=== PATIENT | male | born 1955 | race Caucasian/White ===

== ENCOUNTER 2017-04-28 11:32 | Emergency (ER) | payer MEDICARE, OTHER ==
[~2017-04-28] VITALS: Ht 172.7 cm; Wt 120.2 kg
[~2017-04-28 11:32] MED LIST: ACET325; ACET325 PO; ALLO100 PO; ALLO300; AZIT500 PO; Aspir 8181 MG PO; BIOTENE1000 ML MM; CALCA500CH; CALCA500CH PO; CHLGLU.12S; CHLORHEXIDINE; CLOB.05TC TP; CLOBETASOL; CLON.2 PO; CLON.3 PO; DIAZ10; DOC250 PO; DOCCAL240; Duoneb 2.5-0.5 M3 ML IH; FIBE4P; FIBE4P PO; FURO40; FURO40 PO; FURO80 PO; GABA400; GABA400 PO; GABA600 PO; GENASYME PO; GLIM2 PO; GLIM4 PO; HYDACE5; HYDACE5 PO; IBUPROFEN; Ibuprofen Ib200 MG PO; LISI5; LISI5 PO; LORA10 PO; LORA10ER PO; METF500 PO; MUPI2TO TOP; NORT10; NORT10 PO; NORT25 PO; NYSTOP; Nitrostat0.4 MG SL; OMEP20ER; OMEP20ER PO; OMEPRAZOLE MAGN20 MG PO; POTA10T PO; POTCHL20ER; PRAV20 PO; RANI150 PO; SIME80CH; SPIR25 PO; SULTRIDS PO; TAMS.4ER PO; TIZA4; TIZA4 PO; TIZANIDINE HCL PO
[2017-04-28 12:12] LABS: BASOPHILS ABSOLUTE AUTO 0.07 K/mm3 (0.00-0.23); BASOPHILS PERCENT AUTO 1 % (0-2); EOSINOPHILS ABSOLUTE AUTO 0.33 K/mm3 (0.00-0.68); EOSINOPHILS PERCENT AUTO 4 % (0-6); Hematocrit 42.5 % (37.0-53.0); IMMATURE GRAN ABSOLUTE AUTO 0.12 K/mm3 (0.00-0.10); IMMATURE GRAN PERCENT AUTO 1 % (0-1); LYMPHOCYTES ABSOLUTE AUTO 2.04 K/mm3 (0.84-5.20); LYMPHOCYTES PERCENT AUTO 22 % (21-46); MONOCYTES ABSOLUTE AUTO 0.75 K/mm3 (0.16-1.47); MONOCYTES PERCENT AUTO 8 % (4-13); Mean Corpuscular HGB 26.4 pg (26.0-34.0); Mean Corpuscular HGB Conc 30.6 g/dL (31.5-36.5); Mean Corpuscular Volume 86 fL (80-100); Mean Platelet Volume 10.4 fL (9.1-12.4); NEUTROPHILS PERCENT AUTO 64 % (41-73); Platelet Count 222 K/mm3 (150-400); RDW Standard Deviation 50.4 fL (35.1-46.3); Red Blood Cell Count 4.93 M/mm3 (4.30-5.90); White Blood Cell Count 9.31 K/mm3 (4.00-11.30)
[2017-04-28 12:24] LABS: International Normalized Ratio 1.09; Prothrombin Time Results 11.4 Sec (9.7-11.5)
[2017-04-28 12:31] LABS: Alanine Aminotransfer (ALT/SGP 48 U/L (12-78); Albumin, Blood 3.6 g/dL (3.4-5.0); Albumin/Globulin Ratio 0.9 (0.8-1.8); Alk Phos 64 U/L (50-136); Anion Gap 5 mmol/L (6-16); Aspartate Aminotrans (AST/SGOT 28 U/L (12-37); Bilirubin, Total 0.3 mg/dL (0.1-1.0); Blood Urea Nitrogen 17 mg/dL (8-24); Bun/Creatinine Ratio 17.8 (12.0-20.0); CO2, Blood 34 mmol/L (21-32); Calcium, Blood 9.2 mg/dL (8.5-10.1); Chloride, Blood 99 mmol/L (98-108); Creatinine, Blood 0.96 mg/dL (0.60-1.20); Globulin, Blood 4.1 g/dL (2.2-4.0); Glomerular Filtration Rate >60 (60-); Glucose, Blood 172 mg/dL (70-99); Potassium, Blood 3.7 mmol/L (3.5-5.5); Sodium, Blood 138 mmol/L (136-145); Total Protein, Blood 7.7 g/dL (6.4-8.2); Troponin I <0.015 ng/mL (0.000-0.040)
[2017-04-28 12:46] LABS: Base Excess Venous 9.2 mmol/L; Bicarbonate Venous 30.5 mmol/L (24.0-30.0); PO2 Venous 35.1 mmHg (38-42); pH Blood Venous 7.38 (7.34-7.37)
[2017-10-18] MEDS ORDERED: LEVFLO500 PO (13:51)
[2018-01-09] MEDS ORDERED: SITA100T2 PO (16:12)
[2018-01-09] MEDS ORDERED: DAIRY RELIE9000 UNIT (16:13)
[2018-01-09] MEDS ORDERED: Monodox100 MG PO (16:33)
== END 2017-04-28 14:13 | disposition home or self-care (01) ==
LOC: ER 11:32
PROVIDERS: Emergency Medicine
DX: J40 Bronchitis, not specified as acute or chronic (principal); R06.4 Hyperventilation; R53.1 Weakness; Z86.73 Personal history of transient ischemic attack (TIA), and cerebral infarction without residual deficits; Z88.0 Allergy status to penicillin; Z88.8 Allergy status to other drugs, medicaments and biological substances; Z79.899 Other long term (current) drug therapy; Z79.82 Long term (current) use of aspirin; Z79.84 Long term (current) use of oral hypoglycemic drugs
CPT/HCPCS: 36415; 71046; 80053; 82803; 83880; 84443; 84484; 85025; 85610; 93005; 93010; 99284

== ENCOUNTER → 2017-07-06 | Outpatient (CLI) | payer MEDICARE, OTHER ==
[~2017-07-06] MED LIST changes: -NORT25 PO
[2017-07-07 13:03] LABS: Source, Urine Clean Catch
[2017-07-07 13:51] LABS: Appearance, Urine Clear (Clear); Bilirubin, Urine Neg (Neg); Blood, Urine Neg (Neg); Color, Urine Yellow (P-Yellow); Glucose Qualitative, Urine 4+ (Neg); Ketones, Urine 1+ (Neg); Leukocyte Esterase, Urine Neg (Neg); Nitrite, Urine Neg (Neg); Protein, Urine Neg (Neg); Urobilinogen, Urine NORM (Normal)
== END ==
LOC: LAB SHORT 07:00 → LAB 07:00
PROVIDERS: Nurse Practitioner Family
DX: N39.0 Urinary tract infection, site not specified (principal)
CPT/HCPCS: 81003

== ENCOUNTER 2017-07-13 10:40 | Day surgery (SDC) | payer MEDICARE, OTHER ==
[~2017-07-13] VITALS: Ht 170.2 cm; Wt 108.9 kg
== END 2017-07-13 12:40 | disposition home or self-care (01) ==
LOC: ORSCSDS 10:40
PROVIDERS: Internal Medicine Gastroenterology
PROC: 0DB68ZX Excision of Stomach, Via Natural or Artificial Opening Endoscopic, Diagnostic (ICD-10-PCS; principal; 2017-07-13 12:00)
DX: R10.13 Epigastric pain (principal); K29.70 Gastritis, unspecified, without bleeding; R10.9 Unspecified abdominal pain; I10 Essential (primary) hypertension; G47.33 Obstructive sleep apnea (adult) (pediatric); J45.909 Unspecified asthma, uncomplicated; K21.9 Gastro-esophageal reflux disease without esophagitis; Z86.73 Personal history of transient ischemic attack (TIA), and cerebral infarction without residual deficits; E11.9 Type 2 diabetes mellitus without complications; E66.9 Obesity, unspecified; Z68.38 Body mass index [BMI] 38.0-38.9, adult; I50.9 Heart failure, unspecified; G47.30 Sleep apnea, unspecified; Z79.84 Long term (current) use of oral hypoglycemic drugs; Z79.82 Long term (current) use of aspirin; Z79.899 Other long term (current) drug therapy
CPT/HCPCS: 82947; 88305; 88342; J7120

== ENCOUNTER 2017-08-28 11:11 | Emergency (ER) | payer MEDICARE, OTHER ==
[~2017-08-28] VITALS: Ht 170.2 cm; Wt 113.4 kg
[2017-08-28 12:03] LABS: BASOPHILS ABSOLUTE AUTO 0.07 K/mm3 (0.00-0.23); BASOPHILS PERCENT AUTO 1 % (0-2); EOSINOPHILS PERCENT AUTO 2 % (0-6); Hematocrit 40.3 % (37.0-53.0); Hemoglobin 12.5 g/dL (13.5-17.5); IMMATURE GRAN PERCENT AUTO 1 % (0-1); LYMPHOCYTES ABSOLUTE AUTO 1.16 K/mm3 (0.84-5.20); LYMPHOCYTES PERCENT AUTO 8 % (21-46); MONOCYTES ABSOLUTE AUTO 1.25 K/mm3 (0.16-1.47); MONOCYTES PERCENT AUTO 9 % (4-13); Mean Corpuscular HGB 26.4 pg (26.0-34.0); Mean Corpuscular Volume 85 fL (80-100); Mean Platelet Volume 10.1 fL (9.1-12.4); NEUTROPHILS ABSOLUTE AUTO 11.42 K/mm3 (1.96-9.15); NEUTROPHILS PERCENT AUTO 80 % (41-73); Platelet Count 206 K/mm3 (150-400); RDW Coefficient Variation 15.9 % (11.7-14.2); RDW Standard Deviation 49.3 fL (35.1-46.3); Red Blood Cell Count 4.74 M/mm3 (4.30-5.90)
[2017-08-28 12:20] LABS: Alanine Aminotransfer (ALT/SGP 31 U/L (12-78); Albumin, Blood 3.3 g/dL (3.4-5.0); Albumin/Globulin Ratio 0.8 (0.8-1.8); Alk Phos 67 U/L (50-136); Anion Gap 6 mmol/L (6-16); Aspartate Aminotrans (AST/SGOT 15 U/L (12-37); Bilirubin, Total 0.4 mg/dL (0.1-1.0); Blood Urea Nitrogen 10 mg/dL (8-24); Bun/Creatinine Ratio 11.7 (12.0-20.0); CO2, Blood 33 mmol/L (21-32); Chloride, Blood 99 mmol/L (98-108); Creatinine, Blood 0.86 mg/dL (0.60-1.20); Globulin, Blood 4.1 g/dL (2.2-4.0); Glomerular Filtration Rate >60 (60-); Glucose, Blood 248 mg/dL (70-99); Potassium, Blood 3.9 mmol/L (3.5-5.5); Sodium, Blood 138 mmol/L (136-145); Total Protein, Blood 7.4 g/dL (6.4-8.2)
[2017-08-28] MEDS ORDERED: Dulcolax5 MG PO (12:38)
== END 2017-08-28 13:42 | disposition home or self-care (01) ==
LOC: ER 11:11
PROVIDERS: Physician Assistant
DX: K59.00 Constipation, unspecified (principal); Z88.8 Allergy status to other drugs, medicaments and biological substances; Z88.1 Allergy status to other antibiotic agents; Z88.0 Allergy status to penicillin; Z79.82 Long term (current) use of aspirin; Z79.84 Long term (current) use of oral hypoglycemic drugs; Z79.899 Other long term (current) drug therapy
CPT/HCPCS: 74176; 80053; 81000; 83690; 85025; 96360; 99284; J7030

== ENCOUNTER 2017-08-30 15:00 | Inpatient (IN) | payer MEDICARE, OTHER ==
[~2017-08-30] VITALS: Ht 167.6 cm; Wt 100.6 kg
[~2017-08-30 15:00] MED LIST changes: +Dulcolax5 MG PO; +NORT25 PO
[2017-08-30 16:49] LABS: BASOPHILS ABSOLUTE AUTO 0.08 K/mm3 (0.00-0.23); BASOPHILS PERCENT AUTO 1 % (0-2); EOSINOPHILS ABSOLUTE AUTO 0.12 K/mm3 (0.00-0.68); EOSINOPHILS PERCENT AUTO 1 % (0-6); Hematocrit 37.8 % (37.0-53.0); Hemoglobin 11.7 g/dL (13.5-17.5); IMMATURE GRAN PERCENT AUTO 1 % (0-1); LYMPHOCYTES ABSOLUTE AUTO 1.23 K/mm3 (0.84-5.20); LYMPHOCYTES PERCENT AUTO 8 % (21-46); MONOCYTES ABSOLUTE AUTO 1.73 K/mm3 (0.16-1.47); MONOCYTES PERCENT AUTO 11 % (4-13); Mean Corpuscular HGB 26.8 pg (26.0-34.0); Mean Corpuscular Volume 87 fL (80-100); Mean Platelet Volume 10.4 fL (9.1-12.4); NEUTROPHILS ABSOLUTE AUTO 12.75 K/mm3 (1.96-9.15); NEUTROPHILS PERCENT AUTO 79 % (41-73); Platelet Count 204 K/mm3 (150-400); RDW Coefficient Variation 16.5 % (11.7-14.2); RDW Standard Deviation 52.5 fL (35.1-46.3); Red Blood Cell Count 4.37 M/mm3 (4.30-5.90); White Blood Cell Count 16.11 K/mm3 (4.00-11.30)
[2017-08-30 17:13] LABS: Alanine Aminotransfer (ALT/SGP 24 U/L (12-78); Albumin, Blood 2.9 g/dL (3.4-5.0); Albumin/Globulin Ratio 0.7 (0.8-1.8); Alk Phos 77 U/L (50-136); Anion Gap 9 mmol/L (6-16); Aspartate Aminotrans (AST/SGOT 19 U/L (12-37); Bilirubin, Total 0.4 mg/dL (0.1-1.0); Blood Urea Nitrogen 16 mg/dL (8-24); CO2, Blood 28 mmol/L (21-32); Calcium, Blood 9.9 mg/dL (8.5-10.1); Chloride, Blood 102 mmol/L (98-108); Creatinine, Blood 1.33 mg/dL (0.60-1.20); Globulin, Blood 4.4 g/dL (2.2-4.0); Glomerular Filtration Rate 58 (60-); Glucose, Blood 191 mg/dL (70-99); Magnesium, Blood 2.1 mg/dL (1.6-2.4); Potassium, Blood 4.2 mmol/L (3.5-5.5); Sodium, Blood 139 mmol/L (136-145); Total Protein, Blood 7.3 g/dL (6.4-8.2); Troponin I <0.015 ng/mL (0.000-0.040)
[2017-08-31 04:13] LABS: BASOPHILS ABSOLUTE AUTO 0.06 K/mm3 (0.00-0.23); BASOPHILS PERCENT AUTO 1 % (0-2); EOSINOPHILS ABSOLUTE AUTO 0.16 K/mm3 (0.00-0.68); EOSINOPHILS PERCENT AUTO 1 % (0-6); Hematocrit 35.1 % (37.0-53.0); Hemoglobin 10.8 g/dL (13.5-17.5); IMMATURE GRAN ABSOLUTE AUTO 0.12 K/mm3 (0.00-0.10); IMMATURE GRAN PERCENT AUTO 1 % (0-1); LYMPHOCYTES ABSOLUTE AUTO 0.87 K/mm3 (0.84-5.20); LYMPHOCYTES PERCENT AUTO 7 % (21-46); MONOCYTES ABSOLUTE AUTO 1.22 K/mm3 (0.16-1.47); MONOCYTES PERCENT AUTO 10 % (4-13); Mean Corpuscular HGB 26.3 pg (26.0-34.0); Mean Corpuscular HGB Conc 30.8 g/dL (31.5-36.5); Mean Corpuscular Volume 85 fL (80-100); Mean Platelet Volume 10.5 fL (9.1-12.4); NEUTROPHILS ABSOLUTE AUTO 9.69 K/mm3 (1.96-9.15); NEUTROPHILS PERCENT AUTO 80 % (41-73); Platelet Count 176 K/mm3 (150-400); RDW Coefficient Variation 16.5 % (11.7-14.2); RDW Standard Deviation 51.6 fL (35.1-46.3); Red Blood Cell Count 4.11 M/mm3 (4.30-5.90); White Blood Cell Count 12.12 K/mm3 (4.00-11.30)
[2017-08-31 04:33] LABS: Alanine Aminotransfer (ALT/SGP 22 U/L (12-78); Albumin, Blood 2.4 g/dL (3.4-5.0); Albumin/Globulin Ratio 0.6 (0.8-1.8); Alk Phos 67 U/L (50-136); Anion Gap 6 mmol/L (6-16); Aspartate Aminotrans (AST/SGOT 15 U/L (12-37); Bilirubin, Total 0.4 mg/dL (0.1-1.0); Blood Urea Nitrogen 11 mg/dL (8-24); Bun/Creatinine Ratio 12.3 (12.0-20.0); CO2, Blood 29 mmol/L (21-32); Calcium, Blood 8.8 mg/dL (8.5-10.1); Chloride, Blood 107 mmol/L (98-108); Creatinine, Blood 0.89 mg/dL (0.60-1.20); Globulin, Blood 4.2 g/dL (2.2-4.0); Glomerular Filtration Rate >60 (60-); Glucose, Blood 150 mg/dL (70-99); Potassium, Blood 3.9 mmol/L (3.5-5.5); Sodium, Blood 142 mmol/L (136-145); Total Protein, Blood 6.6 g/dL (6.4-8.2)
[2017-09-01 11:59] LABS: BASOPHILS ABSOLUTE AUTO 0.04 K/mm3 (0.00-0.23); BASOPHILS PERCENT AUTO 0 % (0-2); EOSINOPHILS ABSOLUTE AUTO 0.05 K/mm3 (0.00-0.68); EOSINOPHILS PERCENT AUTO 1 % (0-6); Hematocrit 36.8 % (37.0-53.0); Hemoglobin 11.4 g/dL (13.5-17.5); IMMATURE GRAN ABSOLUTE AUTO 0.17 K/mm3 (0.00-0.10); IMMATURE GRAN PERCENT AUTO 2 % (0-1); LYMPHOCYTES PERCENT AUTO 6 % (21-46); MONOCYTES ABSOLUTE AUTO 1.19 K/mm3 (0.16-1.47); MONOCYTES PERCENT AUTO 12 % (4-13); Mean Corpuscular Volume 84 fL (80-100); Mean Platelet Volume 10.1 fL (9.1-12.4); NEUTROPHILS PERCENT AUTO 79 % (41-73); Platelet Count 214 K/mm3 (150-400); RDW Standard Deviation 49.5 fL (35.1-46.3); Red Blood Cell Count 4.38 M/mm3 (4.30-5.90); White Blood Cell Count 9.85 K/mm3 (4.00-11.30)
[2017-09-01 12:30] LABS: Alanine Aminotransfer (ALT/SGP 28 U/L (12-78); Albumin, Blood 2.5 g/dL (3.4-5.0); Albumin/Globulin Ratio 0.5 (0.8-1.8); Alk Phos 77 U/L (50-136); Anion Gap 8 mmol/L (6-16); Aspartate Aminotrans (AST/SGOT 30 U/L (12-37); Bilirubin, Total 0.4 mg/dL (0.1-1.0); Blood Urea Nitrogen 14 mg/dL (8-24); Bun/Creatinine Ratio 18.3 (12.0-20.0); CO2, Blood 24 mmol/L (21-32); Calcium, Blood 8.9 mg/dL (8.5-10.1); Chloride, Blood 111 mmol/L (98-108); Creatinine, Blood 0.77 mg/dL (0.60-1.20); Globulin, Blood 4.6 g/dL (2.2-4.0); Glomerular Filtration Rate >60 (60-); Glucose, Blood 211 mg/dL (70-99); Potassium, Blood 4.1 mmol/L (3.5-5.5); Sodium, Blood 143 mmol/L (136-145); Total Protein, Blood 7.1 g/dL (6.4-8.2); Troponin I <0.015 ng/mL (0.000-0.040)
[2017-09-03 05:12] LABS: BASOPHILS ABSOLUTE AUTO 0.08 K/mm3 (0.00-0.23); BASOPHILS PERCENT AUTO 1 % (0-2); EOSINOPHILS ABSOLUTE AUTO 0.19 K/mm3 (0.00-0.68); EOSINOPHILS PERCENT AUTO 2 % (0-6); Hematocrit 39.2 % (37.0-53.0); Hemoglobin 11.9 g/dL (13.5-17.5); Mean Corpuscular HGB 25.5 pg (26.0-34.0); Mean Corpuscular HGB Conc 30.4 g/dL (31.5-36.5); Mean Corpuscular Volume 84 fL (80-100); Platelet Count 279 K/mm3 (150-400); RDW Coefficient Variation 16.2 % (11.7-14.2); RDW Standard Deviation 49.5 fL (35.1-46.3); Red Blood Cell Count 4.67 M/mm3 (4.30-5.90)
[2017-09-03 05:14] LABS: IMMATURE GRAN ABSOLUTE AUTO 0.56 K/mm3 (0.00-0.10); IMMATURE GRAN PERCENT AUTO 5 % (0-1); LYMPHOCYTES ABSOLUTE AUTO 2.32 K/mm3 (0.84-5.20); LYMPHOCYTES PERCENT AUTO 19 % (21-46); MONOCYTES ABSOLUTE AUTO 1.26 K/mm3 (0.16-1.47); MONOCYTES PERCENT AUTO 11 % (4-13); NEUTROPHILS ABSOLUTE AUTO 7.59 K/mm3 (1.96-9.15); NEUTROPHILS PERCENT AUTO 63 % (41-73)
[2017-09-03 05:36] LABS: Albumin, Blood 2.6 g/dL (3.4-5.0); Anion Gap 8 mmol/L (6-16); Blood Urea Nitrogen 25 mg/dL (8-24); Bun/Creatinine Ratio 25.9 (12.0-20.0); CO2, Blood 30 mmol/L (21-32); Calcium, Blood 9.1 mg/dL (8.5-10.1); Chloride, Blood 107 mmol/L (98-108); Creatinine, Blood 0.97 mg/dL (0.60-1.20); Glomerular Filtration Rate >60 (60-); Glucose, Blood 179 mg/dL (70-99); Phosphorus, Blood 3.4 mg/dL (2.5-4.9); Potassium, Blood 3.6 mmol/L (3.5-5.5); Sodium, Blood 145 mmol/L (136-145)
[2017-09-05 05:25] LABS: BASOPHILS ABSOLUTE AUTO 0.06 K/mm3 (0.00-0.23); BASOPHILS PERCENT AUTO 1 % (0-2); EOSINOPHILS ABSOLUTE AUTO 0.35 K/mm3 (0.00-0.68); EOSINOPHILS PERCENT AUTO 3 % (0-6); Hemoglobin 12.7 g/dL (13.5-17.5); IMMATURE GRAN PERCENT AUTO 7 % (0-1); LYMPHOCYTES ABSOLUTE AUTO 2.31 K/mm3 (0.84-5.20); LYMPHOCYTES PERCENT AUTO 17 % (21-46); MONOCYTES ABSOLUTE AUTO 1.06 K/mm3 (0.16-1.47); MONOCYTES PERCENT AUTO 8 % (4-13); Mean Corpuscular HGB 26.3 pg (26.0-34.0); Mean Corpuscular HGB Conc 31.8 g/dL (31.5-36.5); Mean Corpuscular Volume 83 fL (80-100); Mean Platelet Volume 9.6 fL (9.1-12.4); NEUTROPHILS PERCENT AUTO 65 % (41-73); Platelet Count 277 K/mm3 (150-400); RDW Coefficient Variation 15.9 % (11.7-14.2); RDW Standard Deviation 47.7 fL (35.1-46.3); Red Blood Cell Count 4.82 M/mm3 (4.30-5.90); White Blood Cell Count 13.28 K/mm3 (4.00-11.30)
[2017-09-05 05:44] LABS: BAND PERCENT MAN 1 % (0-8); BASOPHILS PERCENT MAN 0 % (0-2); EOSINOPHILS ABSOLUTE MAN 0.53 K/mm3 (0.00-0.68); EOSINOPHILS PERCENT MAN 4 % (0-6); LYMPHOCYTES % ATYPICAL MANUAL 1 % (0-0); LYMPHOCYTES ABSOLUTE MAN 1.06 K/mm3 (0.84-5.20); LYMPHOCYTES PERCENT MAN 7 % (21-46); METAMYELOCYTE ABSOLUTE MAN 0.39 K/mm3 (0.00-0.00); METAMYELOCYTE PERCENT MAN 3 % (0-0); MONOCYTES ABSOLUTE MAN 0.79 K/mm3 (0.16-1.47); MONOCYTES PERCENT MAN 6 % (4-13); NEUTROPHILS ABSOLUTE MAN 10.49 K/mm3 (1.96-9.15); SEG NEUTROPHILS PERCENT MAN 78 % (41-73); TOTAL CELLS COUNTED 100
[2017-09-05 05:57] LABS: Anion Gap 9 mmol/L (6-16); Blood Urea Nitrogen 20 mg/dL (8-24); Bun/Creatinine Ratio 22.1 (12.0-20.0); CO2, Blood 26 mmol/L (21-32); Calcium, Blood 9.4 mg/dL (8.5-10.1); Chloride, Blood 108 mmol/L (98-108); Creatinine, Blood 0.91 mg/dL (0.60-1.20); Glomerular Filtration Rate >60 (60-); Glucose, Blood 198 mg/dL (70-99); Potassium, Blood 3.8 mmol/L (3.5-5.5); Sodium, Blood 143 mmol/L (136-145)
[2017-09-05] MEDS ORDERED: XARELTO20 MG PO (17:20)
[2017-09-05] MEDS ORDERED: DOXY100 PO (17:20)
== END 2017-09-05 19:10 | disposition home or self-care (01) | DRG 871 ==
LOC: ER 15:00 → PCU 17:29 → MEDS 17:29 → PCU 18:27 → MEDS 08-31 14:44 → PCU 09-01 13:25 → MEDS 09-02 17:22 → ENPENDDIS 09-05 11:30 → MEDS 09-05 19:10
PROVIDERS: Emergency Medicine; Family Medicine; Internal Medicine; Student in an Organized Health Care Education/Training Program
DX: A41.50 Gram-negative sepsis, unspecified (principal); R65.21 Severe sepsis with septic shock; N39.0 Urinary tract infection, site not specified; I69.351 Hemiplegia and hemiparesis following cerebral infarction affecting right dominant side; N17.9 Acute kidney failure, unspecified; N41.0 Acute prostatitis; R44.3 Hallucinations, unspecified; E78.5 Hyperlipidemia, unspecified; E11.9 Type 2 diabetes mellitus without complications; I10 Essential (primary) hypertension; G47.33 Obstructive sleep apnea (adult) (pediatric); Z79.82 Long term (current) use of aspirin; E86.9 Volume depletion, unspecified; I95.9 Hypotension, unspecified; B96.1 Klebsiella pneumoniae [K. pneumoniae] as the cause of diseases classified elsewhere; N40.1 Benign prostatic hyperplasia with lower urinary tract symptoms; R33.9 Retention of urine, unspecified; L50.0 Allergic urticaria; T37.8X5A Adverse effect of other specified systemic anti-infectives and antiparasitics, initial encounter; Y92.239 Unspecified place in hospital as the place of occurrence of the external cause; N39.490 Overflow incontinence; I69.320 Aphasia following cerebral infarction; Z79.84 Long term (current) use of oral hypoglycemic drugs; Z86.711 Personal history of pulmonary embolism; Z87.01 Personal history of pneumonia (recurrent)
CPT/HCPCS: 36415; 51702; 71045; 80048; 80053; 80069; 81001; 82947; 83605; 83735; 83880; 84484; 85025; 87040; 87077; 87086; 87186; 93005; 93010; 94640; 94660; 94762; 96365; 97161; 97530; 99285; G8978; G8979; J1200; J1650; J1815; J1940; J1956; J2060; J2930; J7030

== ENCOUNTER → 2017-09-26 | Outpatient (CLI) | payer MEDICARE, OTHER ==
[~2017-09-26] MED LIST changes: +DOXY100 PO; +XARELTO20 MG PO
[2017-09-26 17:42] LABS: Source, Urine Clean Catch
[2017-09-26 17:50] LABS: Bilirubin, Urine Neg (Neg); Blood, Urine 1+ (Neg); Glucose Qualitative, Urine Neg (Neg); Ketones, Urine Neg (Neg); Leukocyte Esterase, Urine 2+ (Neg); Nitrite, Urine Neg (Neg); Protein, Urine Neg (Neg); Specific Gravity, Urine 1.015 (1.003-1.022); Urobilinogen, Urine NORM (Normal)
[2017-09-26 18:14] LABS: Appearance, Urine Clear (Clear); Color, Urine Pale Yellow (P-Yellow)
[2017-09-26 18:15] LABS: Bacteria Not Seen /hpf; Red Blood Cells, Urine 0-2 /hpf (0-2); Squamous Epithelial Cells Few /hpf (Few); White Blood Cells, Urine 0-2 /hpf (0-5)
== END ==
LOC: LAB 14:45 → LAB SHORT 14:45
PROVIDERS: Nurse Practitioner Family
DX: N39.0 Urinary tract infection, site not specified (principal); R35.0 Frequency of micturition
CPT/HCPCS: 81001

== ENCOUNTER → 2017-10-13 | Outpatient (CLI) | payer MEDICARE, OTHER ==
[~2017-10-13] MED LIST changes: +LEVFLO500 PO
== END ==
LOC: LAB 16:34 → LAB SHORT 16:34
DX: N39.0 Urinary tract infection, site not specified (principal); R30.0 Dysuria
CPT/HCPCS: 87077; 87086; 87186

== ENCOUNTER → 2017-12-05 | Outpatient (CLI) | payer MEDICARE, OTHER ==
[2017-12-05 13:50] LABS: Source, Urine Clean Catch
[2017-12-05 14:24] LABS: Bilirubin, Urine Neg (Neg); Blood, Urine Neg (Neg); Glucose Qualitative, Urine Neg (Neg); Ketones, Urine Neg (Neg); Leukocyte Esterase, Urine 1+ (Neg); Nitrite, Urine Neg (Neg); Protein, Urine 1+ (Neg); Specific Gravity, Urine 1.015 (1.003-1.022); Urobilinogen, Urine NORM (Normal)
[2017-12-05 14:51] LABS: Appearance, Urine Clear (Clear); Color, Urine Yellow (P-Yellow)
[2017-12-05 14:57] LABS: Bacteria Few /hpf; Red Blood Cells, Urine Not Seen /hpf (0-2); Squamous Epithelial Cells Not Seen /hpf (Few); Transitional Epithelial Cells Rare /hpf (0-Rare)
== END ==
LOC: LAB SHORT 06:15 → LAB 06:15
PROVIDERS: Nurse Practitioner Family
DX: N39.0 Urinary tract infection, site not specified (principal)
CPT/HCPCS: 81001; 87077; 87086; 87186

== ENCOUNTER → 2017-12-21 | Outpatient (CLI) | payer MEDICARE, OTHER ==
[2017-12-21 18:06] LABS: Bilirubin, Urine Neg (Neg); Blood, Urine Neg (Neg); Color, Urine Yellow (P-Yellow); Glucose Qualitative, Urine Neg (Neg); Ketones, Urine Neg (Neg); Leukocyte Esterase, Urine Neg (Neg); Nitrite, Urine Neg (Neg); Protein, Urine Neg (Neg); Specific Gravity, Urine 1.015 (1.003-1.022); Urobilinogen, Urine NORM (Normal)
[2017-12-21 18:37] LABS: Appearance, Urine Clear (Clear)
== END ==
LOC: LAB SHORT 17:35
PROVIDERS: Nurse Practitioner Family
DX: N39.0 Urinary tract infection, site not specified (principal)
CPT/HCPCS: 81003

== ENCOUNTER → 2018-01-30 | Outpatient (CLI) | payer MEDICARE, OTHER ==
[~2018-01-30] MED LIST changes: +DAIRY RELIE9000 UNIT; +Monodox100 MG PO; +SITA100T2 PO
[2018-01-31 13:46] LABS: Bilirubin, Urine Neg (Neg); Blood, Urine Neg (Neg); Glucose Qualitative, Urine 1+ (Neg); Ketones, Urine Neg (Neg); Leukocyte Esterase, Urine Neg (Neg); Nitrite, Urine Neg (Neg); Protein, Urine Neg (Neg); Specific Gravity, Urine 1.015 (1.003-1.022); Urobilinogen, Urine NORM (Normal); pH, Urine 6.5 (5.0-8.0)
[2018-01-31 13:58] LABS: Color, Urine Yellow (P-Yellow)
[2018-01-31 13:59] LABS: Appearance, Urine Clear (Clear)
== END | disposition home or self-care (01) ==
LOC: LAB 18:30 → LAB SHORT 18:30
PROVIDERS: Nurse Practitioner Family
DX: N39.0 Urinary tract infection, site not specified (principal)
CPT/HCPCS: 81003

== ENCOUNTER → 2018-07-23 | Outpatient (CLI) | payer MEDICARE, OTHER ==
[2018-07-24 16:04] LABS: Adenovirus F 40/41 Not Detected (NOT DETECT); Astrovirus Not Detected (NOT DETECT); Campylobacter Sp Not Detected (NOT DETECT); Cryptosporidium Not Detected (NOT DETECT); Cyclospora Cayetanensis Not Detected (NOT DETECT); E. Coli O157 Not Detected (NOT DETECT); Entamoeba Histolytica Not Detected (NOT DETECT); Enteroaggregative E. coli-EAEC Not Detected (NOT DETECT); Enteropathogenic E. coli-EPEC Not Detected (NOT DETECT); Enterotoxigenic E. coli-ETEC Not Detected (NOT DETECT); Giardia Lamblia Not Detected (NOT DETECT); Norovirus GI/GII Not Detected (NOT DETECT); Plesiomonas Shigelloides Not Detected (NOT DETECT); Rotavirus A Not Detected (NOT DETECT); Salmonella Sp Not Detected (NOT DETECT); Sapovirus Not Detected (NOT DETECT); Shiga Toxin-prod E. coli-STEC Not Detected (NOT DETECT); Shigella/Enteroin E. coli-EIEC Not Detected (NOT DETECT); Vibrio Cholerae Not Detected (NOT DETECT); Vibrio Sp Not Detected (NOT DETECT); Yersinia Enterocolitica Not Detected (NOT DETECT)
== END | disposition home or self-care (01) ==
LOC: LAB 13:25 → LAB SHORT 13:25
PROVIDERS: Nurse Practitioner Family
DX: R19.7 Diarrhea, unspecified (principal)
CPT/HCPCS: 87507

== ENCOUNTER → 2020-01-14 | Outpatient (CLI) | payer MEDICARE, OTHER | LOC: LAB 17:34 → LAB SHORT 17:34 | DX: E11.9 Type 2 diabetes mellitus without complications (principal) | CPT/HCPCS: 82043 ==

== ENCOUNTER → 2020-04-10 | Outpatient (CLI) | payer MEDICARE, OTHER ==
[2020-04-10 12:56] LABS: BASOPHILS ABSOLUTE AUTO 0.08 K/mm3 (0.00-0.23); BASOPHILS PERCENT AUTO 1 % (0-2); EOSINOPHILS ABSOLUTE AUTO 0.39 K/mm3 (0.00-0.68); EOSINOPHILS PERCENT AUTO 5 % (0-6); IMMATURE GRAN ABSOLUTE AUTO 0.08 K/mm3 (0.00-0.10); IMMATURE GRAN PERCENT AUTO 1 % (0-1); LYMPHOCYTES ABSOLUTE AUTO 1.84 K/mm3 (0.84-5.20); LYMPHOCYTES PERCENT AUTO 21 % (21-46); MONOCYTES ABSOLUTE AUTO 0.67 K/mm3 (0.16-1.47); MONOCYTES PERCENT AUTO 8 % (4-13); Mean Corpuscular HGB 26.3 pg (26.0-34.0); Mean Corpuscular HGB Conc 30.8 g/dL (31.5-36.5); Mean Corpuscular Volume 85 fL (80-100); Mean Platelet Volume 11.7 fL (9.1-12.4); NEUTROPHILS ABSOLUTE AUTO 5.67 K/mm3 (1.96-9.15); NEUTROPHILS PERCENT AUTO 65 % (41-73); Platelet Count 184 K/mm3 (150-400); RDW Coefficient Variation 15.9 % (11.7-14.2); RDW Standard Deviation 49.2 fL (35.1-46.3); Red Blood Cell Count 4.57 M/mm3 (4.30-5.90); White Blood Cell Count 8.73 K/mm3 (4.00-11.30)
== END ==
LOC: LAB SHORT 08:30 → LAB 08:30
PROVIDERS: Nurse Practitioner Family
DX: I11.0 Hypertensive heart disease with heart failure (principal); I50.9 Heart failure, unspecified; E11.9 Type 2 diabetes mellitus without complications
CPT/HCPCS: 83036; 85025

== ENCOUNTER → 2020-06-02 | Outpatient (CLI) | payer MEDICARE, OTHER ==
[2020-06-02 15:32] LABS: Appearance, Urine Clear (Clear); Bilirubin, Urine Neg (Neg); Blood, Urine Neg (Neg); Color, Urine Yellow (P-Yellow); Glucose Qualitative, Urine Neg (Neg); Ketones, Urine Neg (Neg); Leukocyte Esterase, Urine Neg (Neg); Nitrite, Urine Neg (Neg); Protein, Urine Neg (Neg); Urobilinogen, Urine NORM (Normal)
== END | disposition home or self-care (01) ==
LOC: LAB 13:31 → LAB SHORT 13:31
PROVIDERS: Nurse Practitioner Family
DX: N39.0 Urinary tract infection, site not specified (principal)
CPT/HCPCS: 81003

== ENCOUNTER 2020-11-16 08:42 | Inpatient (IN) | payer MEDICARE, OTHER ==
[~2020-11-16] VITALS: Ht 188 cm; Wt 95.2 kg
[~2020-11-16 08:42] MED LIST changes: +Acetaminophen325 M1 PO; +GABA300 PO; -GABA600 PO; +IBUP200 PO; -Ibuprofen Ib200 MG PO
[2020-11-16 09:12] LABS: BASOPHILS ABSOLUTE AUTO 0.02 K/mm3 (0.00-0.23); BASOPHILS PERCENT AUTO 0 % (0-2); EOSINOPHILS ABSOLUTE AUTO 0.01 K/mm3 (0.00-0.68); EOSINOPHILS PERCENT AUTO 0 % (0-6); Hematocrit 38.9 % (37.0-53.0); Hemoglobin 12.4 g/dL (13.5-17.5); IMMATURE GRAN ABSOLUTE AUTO 0.04 K/mm3 (0.00-0.10); IMMATURE GRAN PERCENT AUTO 1 % (0-1); LYMPHOCYTES ABSOLUTE AUTO 0.83 K/mm3 (0.84-5.20); LYMPHOCYTES PERCENT AUTO 12 % (21-46); MONOCYTES ABSOLUTE AUTO 0.64 K/mm3 (0.16-1.47); MONOCYTES PERCENT AUTO 9 % (4-13); Mean Corpuscular HGB 25.9 pg (26.0-34.0); Mean Corpuscular HGB Conc 31.9 g/dL (31.5-36.5); Mean Corpuscular Volume 81 fL (80-100); Mean Platelet Volume 9.6 fL (9.1-12.4); NEUTROPHILS ABSOLUTE AUTO 5.66 K/mm3 (1.96-9.15); NEUTROPHILS PERCENT AUTO 79 % (41-73); Platelet Count 175 K/mm3 (150-400); RDW Coefficient Variation 17.1 % (11.7-14.2); RDW Standard Deviation 50.3 fL (35.1-46.3); Red Blood Cell Count 4.79 M/mm3 (4.30-5.90)
[2020-11-16 09:27] LABS: Bun/Creatinine Ratio 12.8 (12.0-20.0); Calcium, Blood 9.1 mg/dL (8.5-10.1); Creatinine, Blood 2.26 mg/dL (0.60-1.20)
[2020-11-16 10:00] LABS: Ferritin, Serum 217 ng/mL (26-388); Lactate Dehydrogenase (Ld),Bld 207 U/L (100-240)
[2020-11-16] MEDS ORDERED: BETASEPT118 M1 PO (10:39)
[2020-11-16] MEDS ORDERED: INSULANI SC (10:40)
[2020-11-16] MEDS ORDERED: NOVOLOG FL100 UNIT/3 SC (10:41)
[2020-11-16] MEDS ORDERED: MIRALAX17 GM PO (10:43)
[2020-11-16] MEDS ORDERED: OZEMPIC1 MG/0.72 SC (10:43)
[2020-11-16] MEDS ORDERED: SULTRIDS PO (10:45)
[2020-11-16] MEDS ORDERED: BETA.05TCA TOP (10:46)
[2020-11-16] MEDS ORDERED: MYLANTA MAXIMUM10 ML (10:47)
[2020-11-16] MEDS ORDERED: BISA5EC PO (10:48)
[2020-11-16] MEDS ORDERED: IPRAT-ALBUT 0.5-3 ML NEB (10:49)
[2020-11-16] MEDS ORDERED: LOPE2C PO (10:50)
[2020-11-16] MEDS ORDERED: NYSTRIT TOP (10:51)
[2020-11-16] MEDS ORDERED: CLOBET30L (10:51)
[2020-11-16] MEDS ORDERED: SILVADENE20 G1 (10:52)
[2020-11-16 11:41] LABS: Albumin, Blood 3.2 g/dL (3.4-5.0); Albumin/Globulin Ratio 0.9 (0.8-1.8); Bilirubin, Total 0.3 mg/dL (0.1-1.0); Bun/Creatinine Ratio 13.7 (12.0-20.0); Calcium, Blood 8.2 mg/dL (8.5-10.1); Creatinine, Blood 2.12 mg/dL (0.60-1.20); Globulin, Blood 3.6 g/dL (2.2-4.0); Total Protein, Blood 6.8 g/dL (6.4-8.2)
[2020-11-16 13:07] LABS: Source, Urine Catheter
[2020-11-16 13:15] LABS: Appearance, Urine Clear (Clear); Blood, Urine Neg (Neg); Color, Urine Yellow (P-Yellow); Glucose Qualitative, Urine Neg (Neg); Ketones, Urine Neg (Neg); Leukocyte Esterase, Urine Neg (Neg); Nitrite, Urine Neg (Neg); Protein, Urine 2+ (Neg); Urobilinogen, Urine NORM (Normal)
[2020-11-16 13:23] LABS: Bilirubin, Urine 1+ (Neg)
[2020-11-16 13:26] LABS: Red Blood Cells, Urine 0-2 /hpf (0-2)
[2020-11-16 13:27] LABS: Bacteria Mod /hpf; Squamous Epithelial Cells Mod /hpf (Few)
--- NOTE | 2020-11-16 15:57 | NUR ---
PER RUN 1/2 L D5WNS IN BOLUS FOR B.P. IN 80'S.
--- NOTE | 2020-11-16 18:14 | NUR ---
LIVES AT [facility]. ALERT TO SELF. HX; UTI'S, PROSTATITIS, D.M., HTN, STROKE W/RT IKE, P.E., MANAGER PHILOSOPHY SHUNT AND BRAIN ANEURYSM. CAME IN BECAUSE FACILITIES SAID HEART RATE WAS 200'S AND B.P. WAS SYSTOLIC 70'S. B.P. WAS 80'S ON ADMIT AND PER TO GET 500 ML BOLUS OF D5WNS WHICH DID BRING B.P. UP TO 90'S. IV INFUSING AT 125 ML /HR. TEL ON AND PER [employer] SR.HAS BRACE ON RT LEG. RT FINGERS/ HAND WITH CONTRACTURES. SHEETS DRAINING CLEAR YELLOW URINE TO GRAVITY. SATS ON 2 LPM HIGH 90'S. RECEIVED FIRST DOSE REMDESIVIR AND LEVOQUIN IV. SET UP DINNER TRAY FOR PATIENT. [facility]
--- NOTE | 2020-11-16 18:25 | NUR ---
PATIENTS MOM, LIBAN, UPDATED. SHE STS HE HAD ANEURYSM 1998 AND HAS SHORT TERM MEMORY LOSS AND APHASIA. NORMALLY WHEELCHAIR BOUND.
[2020-11-17 04:18] LABS: BASOPHILS ABSOLUTE AUTO 0.01 K/mm3 (0.00-0.23); BASOPHILS PERCENT AUTO 0 % (0-2); EOSINOPHILS PERCENT AUTO 0 % (0-6); Hematocrit 34.7 % (37.0-53.0); Hemoglobin 10.8 g/dL (13.5-17.5); IMMATURE GRAN ABSOLUTE AUTO 0.07 K/mm3 (0.00-0.10); IMMATURE GRAN PERCENT AUTO 1 % (0-1); LYMPHOCYTES ABSOLUTE AUTO 0.67 K/mm3 (0.84-5.20); LYMPHOCYTES PERCENT AUTO 11 % (21-46); MONOCYTES ABSOLUTE AUTO 0.48 K/mm3 (0.16-1.47); MONOCYTES PERCENT AUTO 8 % (4-13); Mean Corpuscular HGB 25.4 pg (26.0-34.0); Mean Corpuscular HGB Conc 31.1 g/dL (31.5-36.5); Mean Corpuscular Volume 82 fL (80-100); Mean Platelet Volume 10.2 fL (9.1-12.4); NEUTROPHILS ABSOLUTE AUTO 4.98 K/mm3 (1.96-9.15); NEUTROPHILS PERCENT AUTO 80 % (41-73); Platelet Count 173 K/mm3 (150-400); RDW Standard Deviation 50.2 fL (35.1-46.3); Red Blood Cell Count 4.25 M/mm3 (4.30-5.90); White Blood Cell Count 6.21 K/mm3 (4.00-11.30)
[2020-11-17 04:49] LABS: Alanine Aminotransfer (ALT/SGP 29 U/L (12-78); Albumin, Blood 2.7 g/dL (3.4-5.0); Albumin/Globulin Ratio 0.7 (0.8-1.8); Alk Phos 50 U/L (50-136); Anion Gap 8 mmol/L (6-16); Aspartate Aminotrans (AST/SGOT 30 U/L (12-37); Bilirubin, Total 0.3 mg/dL (0.1-1.0); Blood Urea Nitrogen 20 mg/dL (8-24); Bun/Creatinine Ratio 20.9 (12.0-20.0); CO2, Blood 23 mmol/L (21-32); Calcium, Blood 8.1 mg/dL (8.5-10.1); Chloride, Blood 107 mmol/L (98-108); Creatinine, Blood 0.96 mg/dL (0.60-1.20); Globulin, Blood 4.1 g/dL (2.2-4.0); Glomerular Filtration Rate >60 (60-); Glucose, Blood 102 mg/dL (70-99); Potassium, Blood 4.3 mmol/L (3.5-5.5); Sodium, Blood 138 mmol/L (136-145); Total Protein, Blood 6.8 g/dL (6.4-8.2)
--- NOTE | 2020-11-17 05:22 | NUR ---
SHIFT SUMMARY PATIENT IS ALERT AND ORIENTED X3-4. KNOWS SELF AND PLACE. PATIENT HAS TROUBLE VOICING WHAT HE WANTS AND BLURTS OUT RANDOM WORDS AT TIMES. HX OF STROKE WITH APHASIA AND RIGHT SIDE WEAKNESS. SPLINT ON RIGHT LOWER EXTREMITY. LUNGS CLEAR TO DIMINISHED 02 SATS >95% ON 2L VIA NC. 2 PERSON ASSIST WITH REPSITIONING, PATIENT ABLE TO ASSIST. SHEETS DRAINING TO GRAVITY. VSS, NO ACUTE CHANGES. CALL LIGHT IN REACH.
--- NOTE | 2020-11-17 18:10 | NUR ---
SHIFT SUMMARY PT IS AOX4 WITH INTERMITTENT CONFUSION AND CONTINUED DYSPHASIA. PT DENIES PAIN. PT MEDICATED FOR NAUSEA/VOMITING X1 THIS SHIFT. PT SATS REMAIN GREATER THAN 92% ON RA. PT APPETITE IS POOR. PT CBG 68 THIS SULMA AND APPLE JUICE GIVEN TO PT. THIS RN ATTEMPTED TO ASSIST PT WITH DINNER TO BOOST CBG; HOWEVER, PT REFUSED MAJORITY OF MEAL. PT REMAINS ON BEDREST PER BASELINE WITH RIGHT SIDED HEMIPLEGIA. SHEETS PATENT AND DRAINING. PT IS IN BED, CALL LIGHT IN REACH, LOW POSITION.
[2020-11-18 05:08] LABS: RDW Coefficient Variation 16.8 % (11.7-14.2)
[2020-11-18 05:09] LABS: BASOPHILS ABSOLUTE AUTO 0.02 K/mm3 (0.00-0.23); BASOPHILS PERCENT AUTO 0 % (0-2); EOSINOPHILS PERCENT AUTO 0 % (0-6); Hematocrit 37.9 % (37.0-53.0); Hemoglobin 11.7 g/dL (13.5-17.5); IMMATURE GRAN ABSOLUTE AUTO 0.07 K/mm3 (0.00-0.10); IMMATURE GRAN PERCENT AUTO 1 % (0-1); LYMPHOCYTES ABSOLUTE AUTO 0.89 K/mm3 (0.84-5.20); LYMPHOCYTES PERCENT AUTO 11 % (21-46); MONOCYTES PERCENT AUTO 7 % (4-13); Mean Corpuscular HGB 25.3 pg (26.0-34.0); Mean Corpuscular HGB Conc 30.9 g/dL (31.5-36.5); Mean Corpuscular Volume 82 fL (80-100); Mean Platelet Volume 9.9 fL (9.1-12.4); NEUTROPHILS ABSOLUTE AUTO 6.88 K/mm3 (1.96-9.15); NEUTROPHILS PERCENT AUTO 81 % (41-73); Platelet Count 162 K/mm3 (150-400); RDW Standard Deviation 50.3 fL (35.1-46.3); Red Blood Cell Count 4.62 M/mm3 (4.30-5.90); White Blood Cell Count 8.46 K/mm3 (4.00-11.30)
[2020-11-18 05:28] LABS: Anion Gap 8 mmol/L (6-16); Blood Urea Nitrogen 14 mg/dL (8-24); Bun/Creatinine Ratio 17.8 (12.0-20.0); CO2, Blood 22 mmol/L (21-32); Calcium, Blood 8.3 mg/dL (8.5-10.1); Chloride, Blood 107 mmol/L (98-108); Creatinine, Blood 0.79 mg/dL (0.60-1.20); Glomerular Filtration Rate >60 (60-); Glucose, Blood 97 mg/dL (70-99); Potassium, Blood 3.9 mmol/L (3.5-5.5); Sodium, Blood 137 mmol/L (136-145)
--- NOTE | 2020-11-18 07:32 | NUR ---
SHIFT SUMMARY: HANNAH IS ALERT AND ORIENTED X2-3. VSS, NO ACUTE EVENTS OVERNIGHT. OXYGEN MAINTAINING ORA, DOES REQUIRE 2 L VIA NC DURING SLEEP. OCCASIONAL COUGH NOTED. HE HAS ASKED TO GET DRESSED AND STATED THAT HE NEEDS TO GO GET HIS CAR MULTIPLE TIMES THIS SHIFT. HE IS TOLERATING PO INTAKE WELL, SHEETS PATENT AND DRAINING. BRACE FOR RLE REMOVED AT PT REQUEST. HE IS LYING IN BED WITH THE CALL LIGHT IN REACH. WILL REPORT TO DAY SHIFT RN.
--- NOTE | 2020-11-18 12:53 | NUR ---
AM NOTE PT A&Ox3; CALM AND COOPERATIVE WITH CARE. PT RESTING IN BED, ASSIST WITH REPOSITIONING. PT DENIES PAIN, BUT SAYS "OW" WHEN TOUCHED. PT SOB WITH EXERTION, SPO2 >92% ON RA. DENIES CHEST PAIN, DIZZINESS AND NAUSEA. PT ASSISTED WITH BREAKFAST THIS AM, HELPER REMARKED IT WAS DIFFICULT FOR THE PATIEINT TO CHEW, NOTIFIED DR PORTILLO, NEW ORDERS FOR [facility] SOFT DIET. PT RECEIVING IV LEVAQUIN AND REMDESIVIR. VSS NO OTHER ACUTE CHANGES NOTED. PT TRANSFERED TO ROOM [address] PORTILLO THAT SEMGLEE WAS NOT GIVEN LAST NIGHT AND CBG THIS AM AND AFTERNOON WERE BOTH 83; NEW ORDER TO DISCONTINUE SEMGLEE.
--- NOTE | 2020-11-18 14:37 | NUR ---
TRANSFER TO MEDICAL PATIENT SETTLED INTO ROOM. DENIES PAIN, NAUSEA, AND SHORTNESS OF BREATH. ASSISTED TO EAT LUNCH.
[2020-11-19 05:05] LABS: BASOPHILS ABSOLUTE AUTO 0.01 K/mm3 (0.00-0.23); BASOPHILS PERCENT AUTO 0 % (0-2); EOSINOPHILS ABSOLUTE AUTO 0.03 K/mm3 (0.00-0.68); EOSINOPHILS PERCENT AUTO 1 % (0-6); Hematocrit 37.7 % (37.0-53.0); Hemoglobin 11.8 g/dL (13.5-17.5); Mean Corpuscular HGB 25.1 pg (26.0-34.0); Mean Corpuscular HGB Conc 31.3 g/dL (31.5-36.5); Mean Corpuscular Volume 80 fL (80-100); Mean Platelet Volume 9.9 fL (9.1-12.4); Platelet Count 174 K/mm3 (150-400); RDW Coefficient Variation 16.8 % (11.7-14.2); RDW Standard Deviation 49.3 fL (35.1-46.3); White Blood Cell Count 6.53 K/mm3 (4.00-11.30)
[2020-11-19 05:08] LABS: IMMATURE GRAN ABSOLUTE AUTO 0.09 K/mm3 (0.00-0.10); IMMATURE GRAN PERCENT AUTO 1 % (0-1); LYMPHOCYTES ABSOLUTE AUTO 1.13 K/mm3 (0.84-5.20); LYMPHOCYTES PERCENT AUTO 17 % (21-46); MONOCYTES ABSOLUTE AUTO 0.53 K/mm3 (0.16-1.47); MONOCYTES PERCENT AUTO 8 % (4-13); NEUTROPHILS ABSOLUTE AUTO 4.74 K/mm3 (1.96-9.15); NEUTROPHILS PERCENT AUTO 73 % (41-73)
[2020-11-19 05:22] LABS: Anion Gap 6 mmol/L (6-16); Blood Urea Nitrogen 17 mg/dL (8-24); Bun/Creatinine Ratio 24.4 (12.0-20.0); CO2, Blood 26 mmol/L (21-32); Calcium, Blood 8.4 mg/dL (8.5-10.1); Chloride, Blood 109 mmol/L (98-108); Glomerular Filtration Rate >60 (60-); Glucose, Blood 116 mg/dL (70-99); Potassium, Blood 3.7 mmol/L (3.5-5.5); Sodium, Blood 141 mmol/L (136-145)
--- NOTE | 2020-11-19 06:55 | NUR ---
SHIFT SUMMARY NO ACUTE CHANGES THIS SHIFT. AOX2-SELF & FOLLOWING SIMPLE DIRECTIONS. TREMORS TO BUE. VSS. SHEETS PATENT & DRAINING. CALL LIGHT IN REACH.
--- NOTE | 2020-11-19 12:03 | NUR ---
Late entry copied from [facility] EMR notes: Update 11/18/20: Per chart review with Dr. De Oliveira this am, pt. appropriate for D/C back to [facility]. Contacted [facility] this morning and I was advised that the nurse needed to discuss the patient's care with the director and they would return my call. Received a call from [facility] staff stating that they will not be accepting Mr. Sommers back to their facility at this time. When I requested a reason, they advised that they are short staffed and could not possibly accept him back at this time. I attempted to discuss further as staffing is an issue at healthcare facilities currently. Again, I was advised that they will not accept him back at this Time. Requested qualifications that pt. would need to meet to return home to [facility]. Informed that it was simply a matter of staffing and that I should follow-up on this week to find out if staffing improves. One last time I requested that they reconsider as the pt. is appropriate for discharge and hospital bed availability has been a concern. Again, the answer is no. Susanne with care management assisting with placement issues. She has contacted [facility] skilled nursing case manager and left message to return call regarding patient's care. I would hate to send pt. to a [facility] facility if he is able to return back to [facility] this week.
[2020-11-20 06:00] LABS: Hemoglobin 11.8 g/dL (13.5-17.5); Mean Corpuscular HGB 25.2 pg (26.0-34.0); Mean Corpuscular HGB Conc 31.1 g/dL (31.5-36.5); Mean Corpuscular Volume 81 fL (80-100); Platelet Count 211 K/mm3 (150-400); RDW Coefficient Variation 16.8 % (11.7-14.2); RDW Standard Deviation 49.2 fL (35.1-46.3); Red Blood Cell Count 4.69 M/mm3 (4.30-5.90); White Blood Cell Count 7.03 K/mm3 (4.00-11.30)
[2020-11-20 06:17] LABS: Anion Gap 7 mmol/L (6-16); Blood Urea Nitrogen 14 mg/dL (8-24); Bun/Creatinine Ratio 18.4 (12.0-20.0); CO2, Blood 26 mmol/L (21-32); Chloride, Blood 112 mmol/L (98-108); Creatinine, Blood 0.76 mg/dL (0.60-1.20); Glomerular Filtration Rate >60 (60-); Glucose, Blood 105 mg/dL (70-99); Sodium, Blood 145 mmol/L (136-145)
[2020-11-20 09:39] LABS: BASOPHILS PERCENT MAN 0 % (0-2)
[2020-11-20 09:41] LABS: EOSINOPHILS ABSOLUTE MAN 0.07 K/mm3 (0.00-0.68); EOSINOPHILS PERCENT MAN 1 % (0-6); LYMPHOCYTES % ATYPICAL MANUAL 2 % (0-0); LYMPHOCYTES ABSOLUTE MAN 0.84 K/mm3 (0.84-5.20); LYMPHOCYTES PERCENT MAN 10 % (21-46); MONOCYTES ABSOLUTE MAN 0.49 K/mm3 (0.16-1.47); MONOCYTES PERCENT MAN 7 % (4-13); NEUTROPHILS ABSOLUTE MAN 5.62 K/mm3 (1.96-9.15); SEG NEUTROPHILS PERCENT MAN 80 % (41-73); TOTAL CELLS COUNTED 100
--- NOTE | 2020-11-20 16:41 | NUR ---
NURSE FROM [facility] CALLED TO ADVISE THAT THEY WILL BE PERFORMING AN ASSESSEMENT ON PATIENT THIS EVENING AT ROUGHLY 6PM. THE ASSESSMENT WILL BE TO DETERMINE IF HE CAN RETURN TO HIS HOME AT [facility]. THE PATIENT HAS BEEN STABLE FOR DISCHARGE FOR SEVERAL DAYS, BUT WAS UNABLE TO RETURN TO [facility] DUE TO STAFF SHORTAGE.
--- NOTE | 2020-11-20 19:21 | NUR ---
SHIFT SUMMARY PT ADMITTED FOR COVID 19 AND SEEMS TO BE DOING WELL. HE IS ON ROOM AIR AND WOULD LIKE GO HOME TO [facility]. RECEIVED HIS LAST DOSE OF REMDESIVIR TODAY AND WAS EVALUATED BY [facility] FOR ACCEPTANCE BACK. [facility] ACCEPTED HIM AND HE WILL MOST LIKELY DC TOMORROW. VSS. WILL REPORT TO ONCOMING RN.
--- NOTE | 2020-11-21 05:28 | NUR ---
SHIFT SUMMARY NO ACUTE CHANGES NOTED OVERNIGHT. EAGERLY AWAITING RETURN HOME. BED REMAINS IN LOWEST POSITION. CALL LIGHT AND BELONGINGS WITHIN REACH. CONTINUE WITH CURRENT PLAN OF CARE.
[2020-11-21 06:51] LABS: Hematocrit 36.9 % (37.0-53.0); Hemoglobin 11.6 g/dL (13.5-17.5); Mean Corpuscular HGB 25.6 pg (26.0-34.0); Mean Corpuscular HGB Conc 31.4 g/dL (31.5-36.5); Mean Corpuscular Volume 82 fL (80-100); Mean Platelet Volume 10.5 fL (9.1-12.4); NRBC ABSOLUTE 0.04 K/mm3 (0.00-0.02); NRBC Auto 0.5 /100 WBC (0.0-0.2); Platelet Count 246 K/mm3 (150-400); RDW Coefficient Variation 17.1 % (11.7-14.2); RDW Standard Deviation 49.8 fL (35.1-46.3); Red Blood Cell Count 4.53 M/mm3 (4.30-5.90); White Blood Cell Count 8.27 K/mm3 (4.00-11.30)
[2020-11-21 07:13] LABS: Anion Gap 5 mmol/L (6-16); Blood Urea Nitrogen 14 mg/dL (8-24); Bun/Creatinine Ratio 17.9 (12.0-20.0); CO2, Blood 27 mmol/L (21-32); Calcium, Blood 9.3 mg/dL (8.5-10.1); Chloride, Blood 113 mmol/L (98-108); Creatinine, Blood 0.78 mg/dL (0.60-1.20); Glomerular Filtration Rate >60 (60-); Glucose, Blood 139 mg/dL (70-99); Potassium, Blood 4.1 mmol/L (3.5-5.5); Sodium, Blood 145 mmol/L (136-145)
[2020-11-21 10:06] LABS: BAND PERCENT MAN 1 % (0-8); BASOPHILS PERCENT MAN 0 % (0-2); EOSINOPHILS ABSOLUTE MAN 0.24 K/mm3 (0.00-0.68); EOSINOPHILS PERCENT MAN 3 % (0-6); LYMPHOCYTES ABSOLUTE MAN 1.24 K/mm3 (0.84-5.20); LYMPHOCYTES PERCENT MAN 15 % (21-46); METAMYELOCYTE ABSOLUTE MAN 0.08 K/mm3 (0.00-0.00); METAMYELOCYTE PERCENT MAN 1 % (0-0); MONOCYTES ABSOLUTE MAN 0.16 K/mm3 (0.16-1.47); MONOCYTES PERCENT MAN 2 % (4-13); MYELOCYTE ABSOLUTE MAN 0.24 K/mm3 (0.00-0.00); MYELOCYTE PERCENT MAN 3 % (0-0); NEUTROPHILS ABSOLUTE MAN 6.28 K/mm3 (1.96-9.15); SEG NEUTROPHILS PERCENT MAN 75 % (41-73); TOTAL CELLS COUNTED 100
--- NOTE | 2020-11-21 14:11 | NUR ---
Discharge Summary Discharging back to [facility]'s house. Discharge paperwork given to patient, did not review d/t patient's mentation is pleasantly confused. Transport via w/c. 2p max stand pivot transfer. Upper denture and glasses sent home. Plastic boot placed to foot and sent with patient along with other personal belongings. Rosario removed by UMESH Moore. No new meds.
== END 2020-11-21 14:07 | DRG 177 ==
LOC: ER 08:42 → PCU 12:38 → SURS 15:07 → MEDS 11-18 13:18 → ENPENDDIS 11-21 10:26 → MEDS 11-21 14:07
PROVIDERS: Emergency Medicine; Family Medicine; ADMIT Internal Medicine
PROC: 3E0D73Z Introduction of Anti-inflammatory into Mouth and Pharynx, Via Natural or Artificial Opening (ICD-10-PCS; principal; 2020-11-16)
PROC: 8E0ZXY6 Isolation (ICD-10-PCS; 2020-11-16)
PROC: XW033E5 Introduction of Remdesivir Anti-infective into Peripheral Vein, Percutaneous Approach, New Technology Group 5 (ICD-10-PCS; 2020-11-16)
PROC: XW033G6 Introduction of REGN-COV2 Monoclonal Antibody into Peripheral Vein, Percutaneous Approach, New Technology Group 6 (ICD-10-PCS; 2020-11-16)
DX: U07.1 COVID-19 (principal); J96.01 Acute respiratory failure with hypoxia; J12.82 Pneumonia due to coronavirus disease 2019; N17.9 Acute kidney failure, unspecified; I69.351 Hemiplegia and hemiparesis following cerebral infarction affecting right dominant side; I50.32 Chronic diastolic (congestive) heart failure; E11.9 Type 2 diabetes mellitus without complications; G47.33 Obstructive sleep apnea (adult) (pediatric); D64.9 Anemia, unspecified; I95.89 Other hypotension; N40.0 Benign prostatic hyperplasia without lower urinary tract symptoms; K21.9 Gastro-esophageal reflux disease without esophagitis; I11.0 Hypertensive heart disease with heart failure; M10.9 Gout, unspecified; E66.01 Morbid (severe) obesity due to excess calories; E78.5 Hyperlipidemia, unspecified; E86.1 Hypovolemia; K76.0 Fatty (change of) liver, not elsewhere classified; L21.9 Seborrheic dermatitis, unspecified; J45.909 Unspecified asthma, uncomplicated; Z90.49 Acquired absence of other specified parts of digestive tract; Z88.0 Allergy status to penicillin; Z88.1 Allergy status to other antibiotic agents; Z88.8 Allergy status to other drugs, medicaments and biological substances; Z87.440 Personal history of urinary (tract) infections; Z86.711 Personal history of pulmonary embolism; Z79.01 Long term (current) use of anticoagulants; Z98.890 Other specified postprocedural states; Z68.27 Body mass index [BMI] 27.0-27.9, adult; Z98.2 Presence of cerebrospinal fluid drainage device; Z79.82 Long term (current) use of aspirin; Z79.1 Long term (current) use of non-steroidal anti-inflammatories (NSAID); Z79.4 Long term (current) use of insulin; Z99.3 Dependence on wheelchair; I69.320 Aphasia following cerebral infarction
CPT/HCPCS: 36415; 51702; 71045; 80048; 80053; 81001; 82728; 82947; 83615; 84145; 84484; 85025; 85379; 85651; 86140; 87040; 87086; 93005; 93010; 94762; 96374-59; 96375-59; 99285-25; A9270; J1956; J2405; J7030; J7042; J7120; Q0243

== ENCOUNTER 2020-12-11 20:33 | Inpatient (IN) | payer MEDICARE, OTHER ==
[~2020-12-11] VITALS: Ht 172.7 cm; Wt 56.9 kg
[~2020-12-11 20:33] MED LIST changes: +BETA.05TCA TOP; +BETASEPT118 M1 PO; +BISA5EC PO; +CLOBET30L; +INSULANI SC; +IPRAT-ALBUT 0.5-3 ML NEB; +LOPE2C PO; +MIRALAX17 GM PO; +MYLANTA MAXIMUM10 ML; +NOVOLOG FL100 UNIT/3 SC; +NYSTRIT TOP; +OZEMPIC1 MG/0.72 SC; +SILVADENE20 G1
[2020-12-11 20:58] LABS: BASOPHILS ABSOLUTE AUTO 0.04 K/mm3 (0.00-0.23); BASOPHILS PERCENT AUTO 0 % (0-2); EOSINOPHILS ABSOLUTE AUTO 0.01 K/mm3 (0.00-0.68); EOSINOPHILS PERCENT AUTO 0 % (0-6); Hematocrit 39.5 % (37.0-53.0); Hemoglobin 12.1 g/dL (13.5-17.5); IMMATURE GRAN ABSOLUTE AUTO 0.08 K/mm3 (0.00-0.10); IMMATURE GRAN PERCENT AUTO 1 % (0-1); LYMPHOCYTES ABSOLUTE AUTO 1.07 K/mm3 (0.84-5.20); LYMPHOCYTES PERCENT AUTO 9 % (21-46); MONOCYTES ABSOLUTE AUTO 0.81 K/mm3 (0.16-1.47); MONOCYTES PERCENT AUTO 7 % (4-13); Mean Corpuscular HGB 25.6 pg (26.0-34.0); Mean Corpuscular HGB Conc 30.6 g/dL (31.5-36.5); Mean Corpuscular Volume 84 fL (80-100); NEUTROPHILS ABSOLUTE AUTO 10.23 K/mm3 (1.96-9.15); NEUTROPHILS PERCENT AUTO 84 % (41-73); Platelet Count 278 K/mm3 (150-400); RDW Coefficient Variation 18.6 % (11.7-14.2); RDW Standard Deviation 56.6 fL (35.1-46.3); Red Blood Cell Count 4.72 M/mm3 (4.30-5.90); White Blood Cell Count 12.24 K/mm3 (4.00-11.30)
[2020-12-11] MEDS ORDERED: BASAGLAR K100 UNIT/3 SC (21:43)
[2020-12-11] MEDS ORDERED: GABAPENTIN600 MG PO (21:43)
[2020-12-11] MEDS ORDERED: OMEP20ER PO (21:45)
[2020-12-11] MEDS ORDERED: KLOR-CON 1010 ME1 PO (21:45)
[2020-12-11] MEDS ORDERED: PRAVASTATIN SOD10 MG PO (21:45)
[2020-12-11] MEDS ORDERED: OZEMPIC1 MG/0.72 SC (21:45)
[2020-12-11] MEDS ORDERED: ALLOPURINOL100 M1 PO (21:45)
[2020-12-11] MEDS ORDERED: FURO20 PO (21:46)
[2020-12-11] MEDS ORDERED: SPIRONOLACTONE25 MG PO (21:46)
[2020-12-11] MEDS ORDERED: LISI5 PO (21:46)
[2020-12-11] MEDS ORDERED: NORTRIPTYLINE H PO (21:46)
[2020-12-11] MEDS ORDERED: METFORMIN HCL500 M2 PO (21:46)
[2020-12-11] MEDS ORDERED: XARELTO20 M1 PO (21:47)
[2020-12-11] MEDS ORDERED: TAMSULOSIN HCL0.4 M1 PO (21:47)
[2020-12-11] MEDS ORDERED: NOVOLOG FL100 UNIT/3 SC (21:50)
[2020-12-11 22:55] LABS: CPK Creatine Kinase 154 U/L (39-308); Creatine Kinase MB 3.9 ng/mL (0.0-3.6); Creatine Kinase MB Index 2.5 (0.0-4.0); Troponin I <0.015 ng/mL (0.000-0.040)
[2020-12-11 22:58] LABS: Alanine Aminotransfer (ALT/SGP 19 U/L (12-78); Albumin, Blood 3.3 g/dL (3.4-5.0); Albumin/Globulin Ratio 0.7 (0.8-1.8); Alk Phos 67 U/L (50-136); Anion Gap 18 mmol/L (6-16); Aspartate Aminotrans (AST/SGOT 15 U/L (12-37); Bilirubin, Total 0.4 mg/dL (0.1-1.0); Blood Urea Nitrogen 56 mg/dL (8-24); Bun/Creatinine Ratio 6.5 (12.0-20.0); CO2, Blood 17 mmol/L (21-32); Chloride, Blood 95 mmol/L (98-108); Creatinine, Blood 8.63 mg/dL (0.60-1.20); Globulin, Blood 4.6 g/dL (2.2-4.0); Glomerular Filtration Rate 6 (60-); Glucose, Blood 94 mg/dL (70-99); Potassium, Blood 7.5 mmol/L (3.5-5.5); Sodium, Blood 130 mmol/L (136-145); Total Protein, Blood 7.9 g/dL (6.4-8.2)
[2020-12-11 23:16] LABS: PCO2 Arterial 34.3 mmHg (35-45); PO2 Arterial 98.3 mmHg (80-100)
[2020-12-11 23:17] LABS: pH Blood Arterial 7.18 (7.35-7.45)
[2020-12-11 23:49] LABS: CPK Creatine Kinase 125 U/L (39-308); Creatine Kinase MB 3.4 ng/mL (0.0-3.6); Creatine Kinase MB Index 2.7 (0.0-4.0); Troponin I <0.015 ng/mL (0.000-0.040)
[2020-12-11 23:50] LABS: D-Dimer, Quantitative <0.19 mg/L FEU (0.00-0.52); International Normalized Ratio 1.39; Prothrombin Time Results 14.7 Sec (9.7-11.5)
[2020-12-11 23:51] LABS: Anion Gap 16 mmol/L (6-16); Blood Urea Nitrogen 57 mg/dL (8-24); Bun/Creatinine Ratio 6.9 (12.0-20.0); CO2, Blood 17 mmol/L (21-32); Calcium, Blood 8.5 mg/dL (8.5-10.1); Chloride, Blood 98 mmol/L (98-108); Creatinine, Blood 8.27 mg/dL (0.60-1.20); Glomerular Filtration Rate 7 (60-); Glucose, Blood 115 mg/dL (70-99); Potassium, Blood 7.1 mmol/L (3.5-5.5); Sodium, Blood 131 mmol/L (136-145)
--- NOTE | 2020-12-12 00:43 | NUR ---
Echocardiogram completed.
--- NOTE | 2020-12-12 00:54 | NUR ---
PATIENT TO ICU 13 AT 0000. RECEIVED BEDSIDE REPORT FROM [facility]. LIMNITD ACCESS WITH 1 PIV TO LEFT AC.
[2020-12-12 01:56] LABS: BASOPHILS ABSOLUTE AUTO 0.05 K/mm3 (0.00-0.23); BASOPHILS PERCENT AUTO 0 % (0-2); EOSINOPHILS ABSOLUTE AUTO 0.01 K/mm3 (0.00-0.68); EOSINOPHILS PERCENT AUTO 0 % (0-6); Hematocrit 37.8 % (37.0-53.0); Hemoglobin 11.2 g/dL (13.5-17.5); IMMATURE GRAN ABSOLUTE AUTO 0.14 K/mm3 (0.00-0.10); IMMATURE GRAN PERCENT AUTO 1 % (0-1); LYMPHOCYTES PERCENT AUTO 8 % (21-46); MONOCYTES ABSOLUTE AUTO 0.99 K/mm3 (0.16-1.47); MONOCYTES PERCENT AUTO 6 % (4-13); Mean Corpuscular HGB 25.6 pg (26.0-34.0); Mean Corpuscular HGB Conc 29.6 g/dL (31.5-36.5); Mean Corpuscular Volume 87 fL (80-100); Mean Platelet Volume 10.2 fL (9.1-12.4); NEUTROPHILS ABSOLUTE AUTO 13.84 K/mm3 (1.96-9.15); NEUTROPHILS PERCENT AUTO 85 % (41-73); Platelet Count 289 K/mm3 (150-400); RDW Coefficient Variation 18.5 % (11.7-14.2); RDW Standard Deviation 57.7 fL (35.1-46.3); Red Blood Cell Count 4.37 M/mm3 (4.30-5.90); White Blood Cell Count 16.33 K/mm3 (4.00-11.30)
[2020-12-12 02:20] LABS: Source, Urine Catheter
[2020-12-12 02:25] LABS: Blood, Urine 2+ (Neg); Glucose Qualitative, Urine Neg (Neg); Ketones, Urine Neg (Neg); Leukocyte Esterase, Urine 1+ (Neg); Nitrite, Urine Neg (Neg); Protein, Urine 3+ (Neg); Specific Gravity, Urine 1.025 (1.003-1.022); Urobilinogen, Urine NORM (Normal)
[2020-12-12 02:30] LABS: Amorphous Light (0-Heavy); Appearance, Urine Clear (Clear); Bacteria Few /hpf; Bilirubin, Urine 1+ (Neg); Color, Urine Yellow (P-Yellow); Red Blood Cells, Urine Rare /hpf (0-2); Squamous Epithelial Cells Not Seen /hpf (Few)
[2020-12-12 02:36] LABS: Albumin, Blood 3.1 g/dL (3.4-5.0); Albumin/Globulin Ratio 0.7 (0.8-1.8); Bilirubin, Total 0.4 mg/dL (0.1-1.0); Bun/Creatinine Ratio 7.4 (12.0-20.0); Calcium, Blood 8.3 mg/dL (8.5-10.1); Creatinine, Blood 7.82 mg/dL (0.60-1.20); Globulin, Blood 4.3 g/dL (2.2-4.0); Phosphorus, Blood 9.2 mg/dL (2.5-4.9); Potassium, Blood 6.8 mmol/L (3.5-5.5); Total Protein, Blood 7.4 g/dL (6.4-8.2)
--- NOTE | 2020-12-12 02:43 | NUR ---
CRITICAL LABS LAB VOCERA'D TO NOTIFY OF CRITICAL LAB VALUES: K+ 6.8, C02 8, PHOS 9.2. CALL PLACED TO MD SLAUGHTER. MD SLAUGHTER WITH ORDERS FOR 2 AMPS OF BICARB IV, AND STAT LAB DRAWS OF K+ AND C02 IN 2 HOURS.
[2020-12-12 05:26] LABS: Potassium, Blood 5.5 mmol/L (3.5-5.5)
--- NOTE | 2020-12-12 06:49 | NUR ---
END OF SHIFT SUMMARY: PATIENT HAS BEEN A/O X2-3 SINCE ADMISSION. HE IS VERY CALM AND COOPERATIVE. HE RECEIVED A DIALYSIS CATHETER THIS MORNING BECAUSE WE HAD PLANNED ON DOING EMERGENT DIALYSYS PER DR SLAUGHTER. LABS HAVE SLOWLY IMROVED SO IT IS ON STANDBY UNTIL DAYSHIFT. HE HAS RECEIVED MULTUIPLE AMPS OF BICARD AND WAS PLACED ON A BUCARB DRIP. DOPAMINE WAS INFUSING AT TIME OF ADMISSION BUT IT WAS SWITCHED TO LEVOPHED WHICH IS RUNNING AT 6. SHEETS CATHETER PLACED AND I'VE HAD 300 OUT. HE HAS BEEN SR/ST ON MONITOR. BP IMPROVING. HE HAS HAD NO ISSUES TAKING PO MEDS THIS EVENING AND OVERALL LOOKS BETTER
[2020-12-12 08:32] LABS: BASOPHILS ABSOLUTE AUTO 0.02 K/mm3 (0.00-0.23); BASOPHILS PERCENT AUTO 0 % (0-2); EOSINOPHILS PERCENT AUTO 0 % (0-6); IMMATURE GRAN ABSOLUTE AUTO 0.13 K/mm3 (0.00-0.10); IMMATURE GRAN PERCENT AUTO 1 % (0-1); LYMPHOCYTES ABSOLUTE AUTO 1.19 K/mm3 (0.84-5.20); LYMPHOCYTES PERCENT AUTO 9 % (21-46); MONOCYTES ABSOLUTE AUTO 1.24 K/mm3 (0.16-1.47); MONOCYTES PERCENT AUTO 9 % (4-13); Mean Corpuscular HGB 26.3 pg (26.0-34.0); Mean Corpuscular HGB Conc 32.4 g/dL (31.5-36.5); Mean Platelet Volume 10.5 fL (9.1-12.4); NEUTROPHILS ABSOLUTE AUTO 10.89 K/mm3 (1.96-9.15); NEUTROPHILS PERCENT AUTO 81 % (41-73); Platelet Count 269 K/mm3 (150-400); RDW Coefficient Variation 18.4 % (11.7-14.2); RDW Standard Deviation 54.2 fL (35.1-46.3); Red Blood Cell Count 4.18 M/mm3 (4.30-5.90); White Blood Cell Count 13.47 K/mm3 (4.00-11.30)
[2020-12-12 08:33] LABS: Mean Corpuscular Volume 81 fL (80-100)
[2020-12-12 08:50] LABS: Albumin, Blood 2.9 g/dL (3.4-5.0); Albumin/Globulin Ratio 0.7 (0.8-1.8); Bilirubin, Direct 0.1 mg/dL (0.0-0.3); Bilirubin, Indirect 0.2 mg/dL (0.1-0.7); Bilirubin, Total 0.3 mg/dL (0.1-1.0); Bun/Creatinine Ratio 7.4 (12.0-20.0); C-REACTIVE PROTEIN, EXT RANGE 3.12 mg/dL (0.000-0.300); Calcium, Blood 8.2 mg/dL (8.5-10.1); Creatinine, Blood 7.42 mg/dL (0.60-1.20); Potassium, Blood 5.9 mmol/L (3.5-5.5); Total Protein, Blood 6.9 g/dL (6.4-8.2)
[2020-12-12 08:56] LABS: Anion Gap 25 mmol/L (6-16); Blood Urea Nitrogen 55 mg/dL (8-24); Bun/Creatinine Ratio 7.3 (12.0-20.0); CHOL/HDL RATIO 3.2; CO2, Blood 15 mmol/L (21-32); Calcium, Blood 8.2 mg/dL (8.5-10.1); Chloride, Blood 94 mmol/L (98-108); Cholesterol 142 mg/dL (50-200); Creatinine, Blood 7.52 mg/dL (0.60-1.20); Glomerular Filtration Rate 7 (60-); Glucose, Blood 109 mg/dL (70-99); HDL Cholesterol 44 mg/dL (>39); LDL/HDL RATIO 1.5; Low Density Lipoprotein Chol 68 mg/dL (0-110); Potassium, Blood 5.9 mmol/L (3.5-5.5); Sodium, Blood 134 mmol/L (136-145); Triglycerides 152 mg/dL (30-160); Troponin I 0.027 ng/mL (0.000-0.040); Very Low Density Lipoprot Chol 30 mg/dL (6-32)
[2020-12-12 09:06] LABS: PCO2 Arterial 30.4 mmHg (35-45); PO2 Arterial 84.2 mmHg (80-100); pH Blood Arterial 7.34 (7.35-7.45)
[2020-12-12 09:09] LABS: D-Dimer, Quantitative 0.23 mg/L FEU (0.00-0.52); International Normalized Ratio 1.27; Prothrombin Time Results 13.5 Sec (9.7-11.5)
[2020-12-12 11:55] LABS: SARS-Cov-2 (COVID-19) PCR, MMC POSITIVE (NEGATIVE)
--- NOTE | 2020-12-12 14:05 | NUR ---
SPOKE MD SLAUGHTER NEPH CONCERNING HEMODIAYSIS, STATES THERE WILL BE NO DIALYSIS SINCE PT IS MAKING URINE AND TO DECREASE THE NABICARG FROM 150CC/HR TO 100CC/HR. CHARGE NURSE NOTIFIED.
--- NOTE | 2020-12-12 14:07 | NUR ---
AT ABOUT 1200, LAB CALL THAT PT TESTED POSTIVE FOR COVID-19 SEE LAB RESULT. ATTENDING MD,AND CHARGE NURSE WAS NOTIFIED. PT WAS PLACED ON ISOLATION PER PROTOCOL.
--- NOTE | 2020-12-12 15:36 | NUR ---
ISOLATION DISCUSSION WITH IP PER NAGI CASILLAS RN, PATIENT REQUIRES BINAX SWAB FOR ISOLATION CLEARANCE. PREVIOUS PCR REMAINED POSITIVE FROM 11/10 INITIAL CONFIRMATION TEST. PLAN IS TO CHECK BINAX TO SEE IF PT HAS A NEW/ACTIVE INFECTION. TESSA FROM LAB WILL BE HERE AT 0630 TO OBTAIN SPECIMEN.
--- NOTE | 2020-12-12 15:59 | NUR ---
AT ABOUT 1030, NOTED DIALYSIS ACCESS TO [facility] FEM WAS OOZING BLOOD. SITE WAS CLEAN FROM THE BLOOD AND PRESSURE DRESSING WAS PLACED. MD AND CHARGE NURSE WAS NOTFIED
--- NOTE | 2020-12-12 18:38 | NUR ---
ALL AIR OF TR BAND NO COMPLICATION NOTED ON THE SITE AND PULSE IS PRESENT. 2X2 DRESSING WITH TAPE TO THE SITE. WILL CONTINUE TO MONITOR SITE.
--- NOTE | 2020-12-12 23:45 | NUR ---
DR. SLAUGHTER NOTIFIED OF PATIENT'S BLOOD PRESSURE AND INCREASED DOSAGES OF LEVO GTT. ALSO NOTIFIED THAT PATIENT HAS BEEN BLEEDING FROM TRIALYSIS CATHETER. CLOTTING INTERVENTIONS USED WITH SOCIAL MEDIA COMMUNITY MANAGER AT BEDSIDE. DR. SLAUGHTER ORDER FOR STAT LABS AND 500ML BOLUS.
[2020-12-13 00:47] LABS: Albumin, Blood 2.9 g/dL (3.4-5.0); Anion Gap 12 mmol/L (6-16); Blood Urea Nitrogen 44 mg/dL (8-24); Bun/Creatinine Ratio 10.7 (12.0-20.0); CO2, Blood 33 mmol/L (21-32); Calcium, Blood 8.6 mg/dL (8.5-10.1); Chloride, Blood 93 mmol/L (98-108); Creatinine, Blood 4.13 mg/dL (0.60-1.20); Glomerular Filtration Rate 15 (60-); Glucose, Blood 146 mg/dL (70-99); Magnesium, Blood 1.5 mg/dL (1.6-2.4); Sodium, Blood 138 mmol/L (136-145)
[2020-12-13 00:51] LABS: Phosphorus, Blood 2.4 mg/dL (2.5-4.9)
--- NOTE | 2020-12-13 02:00 | NUR ---
DR. SLAUGHTER NOTIFIED OF RESULTS OF STAT LABS. GOOD RESPONSE TO 500ML BOLUS FOR SHORT TIME, NOW BACK DOWN TO 80S/50S MAPS 60S. PER DR. SLAUGHTER: D/C BICARB FLUIDS. START NORMAL SALINE AT 75ML/HR. GIVE ANOTHER BOLUS OF 500ML. NO REQUEST FOR ADDITIONAL VASOPRESSORS AT THIS TIME. DR. SLAUGHTER AWARE OF PATIENTS INCREASE IN LEVO GTT.
[2020-12-13 04:35] LABS: BASOPHILS ABSOLUTE AUTO 0.04 K/mm3 (0.00-0.23); BASOPHILS PERCENT AUTO 0 % (0-2); EOSINOPHILS ABSOLUTE AUTO 0.11 K/mm3 (0.00-0.68); EOSINOPHILS PERCENT AUTO 1 % (0-6); Hemoglobin 10.7 g/dL (13.5-17.5); IMMATURE GRAN ABSOLUTE AUTO 0.07 K/mm3 (0.00-0.10); IMMATURE GRAN PERCENT AUTO 1 % (0-1); LYMPHOCYTES ABSOLUTE AUTO 0.97 K/mm3 (0.84-5.20); LYMPHOCYTES PERCENT AUTO 10 % (21-46); MONOCYTES ABSOLUTE AUTO 1.23 K/mm3 (0.16-1.47); MONOCYTES PERCENT AUTO 12 % (4-13); Mean Corpuscular HGB 25.6 pg (26.0-34.0); Mean Corpuscular HGB Conc 32.4 g/dL (31.5-36.5); Mean Corpuscular Volume 79 fL (80-100); Mean Platelet Volume 10.2 fL (9.1-12.4); NEUTROPHILS ABSOLUTE AUTO 7.79 K/mm3 (1.96-9.15); NEUTROPHILS PERCENT AUTO 76 % (41-73); Platelet Count 261 K/mm3 (150-400); RDW Coefficient Variation 18.3 % (11.7-14.2); RDW Standard Deviation 52.3 fL (35.1-46.3); Red Blood Cell Count 4.18 M/mm3 (4.30-5.90); White Blood Cell Count 10.21 K/mm3 (4.00-11.30)
[2020-12-13 04:53] LABS: Albumin, Blood 2.8 g/dL (3.4-5.0); Anion Gap 9 mmol/L (6-16); Blood Urea Nitrogen 35 mg/dL (8-24); Bun/Creatinine Ratio 10.6 (12.0-20.0); CO2, Blood 34 mmol/L (21-32); Calcium, Blood 8.2 mg/dL (8.5-10.1); Chloride, Blood 96 mmol/L (98-108); Creatinine, Blood 3.31 mg/dL (0.60-1.20); Glomerular Filtration Rate 19 (60-); Glucose, Blood 200 mg/dL (70-99); Phosphorus, Blood 2.2 mg/dL (2.5-4.9); Potassium, Blood 3.7 mmol/L (3.5-5.5); Sodium, Blood 139 mmol/L (136-145)
--- NOTE | 2020-12-13 06:20 | NUR ---
SHIFT SUMMARY: LEVOPHED GTT INCREASED THROUGHOUT SHIFT. LEVO GTT NOW AT 26 (INCREASE FROM 6 AT BEGINNING OF SHIFT). PATIENT TOLERATES CPAP HS. TRIALYSIS R FEM DIFFICULTIES OVERNIGHT: MULTIPLE INTERMITTENT USE OF SAND BAGS DUE TO BLEEDING. MANUAL PRESSURE ATTEMPTS HELD. THROMBIN USED AND INITIALLY SEEMED SUCCESSFUL, BUT THEN BLED AGAIN. SAND BAGS USED. DIFFICULTIES WITH BLEEDING POSSIBLY DUE TO PATIENT'S FORGETFULNESS AND CONTINUATION OF MOVEMENT OF LEGS/HIPS DESPITE CONTINUED REINFORCEMENT AND EDUCATION. AT THIS TIME, NO ACTIVE BLEEDING NOTED. PATIENT ABLE TO BE GENTLY REPOSITINED WITHOUT BLEEDING NOW. PATIENT'S MOTHER UPDATED.
--- NOTE | 2020-12-13 18:13 | NUR ---
PT. CONTINUE REMAIN ON LEVO, BUT TITRATED DOWN 16MCG. TRILYSIS SITE STILL OOZING BLOOD. MD WAS NOTIFED BUT NO ORDER RECEIVED PRESSURE DRESSING WAS PALACED ON THE SITE.WILL CONTINUE TO MONITOR BLEEDING AND H&H. VQ SCAN AND CT PE PROTOCOL WAS CANCLLED BY .
--- NOTE | 2020-12-13 18:31 | NUR ---
PT CONTINUE TO BE ON VENT SUPPORT DUE TO RESP FAILURE. SADATED AND PARALIZED. B/S ELEVATED MD STARTED PT ON INSULIN SLIDING SCALE. DAUGHTER WAS UPDATED THIS MORNING. CONTINUE TO MONITOR.
--- NOTE | 2020-12-13 23:21 | NUR ---
CENTRAL LINE RIGHT GROIN DR CHRISTINA CAME TO BEDSIDE DUE TO BLEEDING FROM RIGHT GROIN. DRSG REMOVED AND AROUND CENTRAL LINE CLEANED WITH CHLORPREP. DR CHRISTINA INJECTED 18 ML EPI AROUND CENTRAL LINE SITE TO STOP BLEEDING. AREA THEN CLEANED WITH CHLORPREP, ASHLEY DRSG AND FOLDED 4X4 APPLIED. G DRSG APPIED WITH TENTION TO COVER. SAND BAGS APPLIED TO RIGHT GROIN. PT RECEIVING DDAVP VIA IV.
[2020-12-14 05:17] LABS: BASOPHILS ABSOLUTE AUTO 0.04 K/mm3 (0.00-0.23); BASOPHILS PERCENT AUTO 1 % (0-2); EOSINOPHILS ABSOLUTE AUTO 0.23 K/mm3 (0.00-0.68); EOSINOPHILS PERCENT AUTO 3 % (0-6); Hematocrit 27.7 % (37.0-53.0); Hemoglobin 9.1 g/dL (13.5-17.5); IMMATURE GRAN ABSOLUTE AUTO 0.06 K/mm3 (0.00-0.10); IMMATURE GRAN PERCENT AUTO 1 % (0-1); LYMPHOCYTES PERCENT AUTO 17 % (21-46); MONOCYTES ABSOLUTE AUTO 0.89 K/mm3 (0.16-1.47); MONOCYTES PERCENT AUTO 11 % (4-13); Mean Corpuscular HGB 26.3 pg (26.0-34.0); Mean Corpuscular HGB Conc 32.9 g/dL (31.5-36.5); Mean Corpuscular Volume 80 fL (80-100); Mean Platelet Volume 10.5 fL (9.1-12.4); NEUTROPHILS ABSOLUTE AUTO 5.38 K/mm3 (1.96-9.15); NEUTROPHILS PERCENT AUTO 68 % (41-73); Platelet Count 224 K/mm3 (150-400); RDW Coefficient Variation 18.3 % (11.7-14.2); RDW Standard Deviation 52.6 fL (35.1-46.3); Red Blood Cell Count 3.46 M/mm3 (4.30-5.90)
[2020-12-14 05:54] LABS: Albumin, Blood 2.5 g/dL (3.4-5.0); Anion Gap 5 mmol/L (6-16); Blood Urea Nitrogen 18 mg/dL (8-24); Bun/Creatinine Ratio 15.5 (12.0-20.0); CO2, Blood 28 mmol/L (21-32); Chloride, Blood 102 mmol/L (98-108); Creatinine, Blood 1.16 mg/dL (0.60-1.20); Glomerular Filtration Rate >60 (60-); Glucose, Blood 179 mg/dL (70-99); Phosphorus, Blood 1.6 mg/dL (2.5-4.9); Potassium, Blood 4.2 mmol/L (3.5-5.5); Sodium, Blood 135 mmol/L (136-145)
--- NOTE | 2020-12-14 06:51 | NUR ---
SHIFT SUMMARY NOTE: - CONTINUED BLEEDING WITH TRIALYSIS R GROIN CATHETER S/P EPI/BUP INJECTIONS AROUND SITE, ASHLEY GAUZE, PRESSURE HELD BY 2 RNs, SAND BAGS, AND COMPLETED BAG OF DESMOPRESSIN. DR CHRISTINA AWARE. DRESSING CHANGED THREE TIMES OVERNIGHT DUE TO CONTINUED BLEEDING. - LEVOPHED GTT TITRATED DOWN AND TURNED OFF. (SEE EMAR FOR EXACT TIMES OF TITRATIONS). CURRENT NBP IS 105/64(74) HR 115 - SINUS TACHYCARDIA - PATIENT HAD REFUSED TO WEAR CPAP LAST NIGHT X2 REQUEST. PATIENT WOKE UP AROUND FOUR A.M. AND SEEMED TO HAVE INCREASED CONFUSION. PATIENT REQUESTED TO GET UP OUT OF BED AND WALK TO "MY ROOM." PATIETN NEEDED REINFORCEMENT AND REORIENTATION MULTIPLE TIMES WITHIN A 15 MINUTE TIME FRAME. PATIENT EDUCATED THAT IT IS UNSAFE FOR HIM TO AMBULATE WITH THE CONDITION OF HIS BLOOD PRESSURE AND CATHETER SITE. - INCREASED REDNESS TO COCCYX AREA/BILAT BUTTOCKS. REDNESS IS BLANCHABLE. CALAZIME LOTION APPLIED FOR A PROTECTIVE OINTMENT.
--- NOTE | 2020-12-14 11:18 | NUR ---
[facility] of Care Received report from ICU nurse and pt was transferred over to pcu 05. He is a/o x 3 but does have some delayed speech r/t his cva along with right sided weakness. He is on RA with sats in the 90's. He is sinus tach. His dialysis cath to the right groin has a pressure dressing that is CDI. Sodium phosphate is infusing as ordered. His tapia is patent with yelow urine output. BP is stable. He has his call light in reach. Tele was verified.
--- NOTE | 2020-12-14 16:35 | NUR ---
Shift Summary Pt continues to be a/o x3 with trouble with word finding. His BP continues to be stable and his heart rate got up into the 120's so Dr Hernandez was called and she gave the order for the 500 ml bolus, which did improve his heart rate which is now at 114. He denies any chest pain or discomfort. His central line/dialysis line to his right groin continues with the dressing that is CDI. Dr Hernandez said that he will not need dialysis at this time since his kidney function has improved significantly and it can be used as a central line. His tapia is patent, his urine is darrel with some sediment. His IV fluids continue to run as ordered and his peripheral IV is patent. He is still on RA with sats in the high 90's. His mom called for an update. The pt is able to make his needs known and has his call light and personal items within reach on his left side. 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
[2020-12-15 04:35] LABS: BASOPHILS ABSOLUTE AUTO 0.05 K/mm3 (0.00-0.23); BASOPHILS PERCENT AUTO 1 % (0-2); EOSINOPHILS ABSOLUTE AUTO 0.38 K/mm3 (0.00-0.68); EOSINOPHILS PERCENT AUTO 5 % (0-6); Hemoglobin 7.5 g/dL (13.5-17.5); IMMATURE GRAN PERCENT AUTO 1 % (0-1); LYMPHOCYTES ABSOLUTE AUTO 1.24 K/mm3 (0.84-5.20); LYMPHOCYTES PERCENT AUTO 16 % (21-46); MONOCYTES ABSOLUTE AUTO 0.69 K/mm3 (0.16-1.47); MONOCYTES PERCENT AUTO 9 % (4-13); Mean Corpuscular HGB 25.9 pg (26.0-34.0); Mean Corpuscular HGB Conc 31.3 g/dL (31.5-36.5); Mean Corpuscular Volume 83 fL (80-100); Mean Platelet Volume 10.4 fL (9.1-12.4); NEUTROPHILS ABSOLUTE AUTO 5.46 K/mm3 (1.96-9.15); NEUTROPHILS PERCENT AUTO 69 % (41-73); Platelet Count 179 K/mm3 (150-400); RDW Coefficient Variation 18.3 % (11.7-14.2); RDW Standard Deviation 54.5 fL (35.1-46.3); White Blood Cell Count 7.92 K/mm3 (4.00-11.30)
[2020-12-15 04:53] LABS: Albumin, Blood 2.5 g/dL (3.4-5.0); Anion Gap 6 mmol/L (6-16); Blood Urea Nitrogen 13 mg/dL (8-24); Bun/Creatinine Ratio 12.5 (12.0-20.0); CO2, Blood 27 mmol/L (21-32); Chloride, Blood 106 mmol/L (98-108); Creatinine, Blood 1.04 mg/dL (0.60-1.20); Glomerular Filtration Rate >60 (60-); Glucose, Blood 132 mg/dL (70-99); Phosphorus, Blood 2.2 mg/dL (2.5-4.9); Potassium, Blood 3.5 mmol/L (3.5-5.5); Sodium, Blood 139 mmol/L (136-145)
--- NOTE | 2020-12-15 05:48 | NUR ---
SHIFT SUMMARY PT IS ALERT AND ORIENTED. VITALS ARE STABLE AND ON ROOM AIR WITH SATS ABOVE 90%, PT DENIES CHEST PAIN OR SOB. THERE HAVE BEEN NO ACUTE CHANGES T/O THE NIGHT. PT HAS A RIGHT SIDED DEFICIT AND DOES NOT HAVE MOVEMENT IN RU AND RL EXTREMETIES DUE TO A PAST STROKE. PT DOES ALSO HAVE SLOW SPEECH BUT WILL COMMUNICATE HIS NEEDS. PT VERBALIZES "OW, OW" WHEN TURNING AND WITH [facility]ARE BUT DENIES PAIN WHEN ASKED, HAS REFUSED CARE SOMETIMES. SHEETS IS IN PLACE AND DRAINING TO GRAVITY, URINE IS TEA COLORED. CALL LIGHT IS WITHIN REACH.
--- NOTE | 2020-12-15 08:30 | NUR ---
ASSUME CARE THIS AM: REPORT RECEIVED FROM NOC RN. PT WAS UP AND AWAKE TALKING THIS AM PT HAS RIGHT SIDE DEFICIT DUE TO PAST CVA, HAS EXPRESSIVE APHASIA, SENSITIVE TO TOUCH VERBALIZES "AW, AW" EVEN WITH SLIGHT MOVEMENT. PT RUNNING AT 75MLS/HR OF NS, PT HAS TRIALYSIS ON RIGHT GROIN SITE, NO HEMATOMA NOTED AROUND THE SITE DRESSING INTACT, FLUSHES WELL WITH GOOD BLOOD RETURN. @0900: PT WAS WAKEN UP FOR PROFESSOR OF LANGUAGES AND ASKED IF HE WANTS TO EAT BREAKFAST PT KEEPS SAYING YES BUT IS FALLING ASLEEP QUICK, ALSO HAD EPISODES OF APNEA. MD WAS CALLED AND MADE AWARE VITALS HRR 90-110'S, BP SYSTOLIC 120-130'S, ON CPAP MODE SATTINGS ABOVE 95%, VBG WAS ORDERED TOO AWAITING FOR MD TO REVIEW RESULT. PT REMAINS ASLEEP AT THIS TIME, CBC ORDERED WELL AT 1300 TO RECHECK HGB. PT REPOSITIONED CALL LIGHTS IN REACH WILL CONTINUE TO MONITOR
[2020-12-15 10:03] LABS: Base Excess Venous 1.7 mmol/L; Bicarbonate Venous 25.7 mmol/L (24.0-30.0); PCO2 Venous 41.5 mmHg (38-42); pH Blood Venous 7.41 (7.34-7.37)
--- NOTE | 2020-12-15 11:48 | NUR ---
ADMIT: 12/11/20 DISCHARGE: TBD DX: [facility] CC: J Carlos SURESH RESIDENCE: [facility] DIRECTOR - [phone] CONTACTS: GRICELDA CARABALLO, PARENT, BJ LAWRENCE, FAMILY MEMBER, PRIOR TO ADMIT - DME: URINARY SUPPLIES, DM SUPPLIES, CPAP, COMPRESSION STOCKINGS, WHEELCHAIR CCM: REFERRAL 05/26/20 HHC/HOSPICE: [facility] ORDERED 12/10/20 UPDATE 12/15/20: PER CHART REVIEW WITH DR. RICHEY THIS AM, PT. CONTINUES TO BLEED FROM CATH SITE. POSSIBLY APPROPRIATE FOR D/C WITHIN THE NEXT 24-48 HOURS. WILL PROVIDE UPDATE TO ELIZA AT [facility] THIS AFTERNOON. ANTICIPATED NEEDS AT TIME OF DISCHARGE TO INCLUDE: [facility] HOME HEALTH CARE PHYSICIAN, ORDER FOR RESUMPTION UPDATE 12/12/20: PER CHART REVIEW WITH DR. RICHEY, PT. NOT YET APPROPRIATE FOR DISCHARGE. PROVIDED UPDATE TO [facility] STAFF.
[2020-12-15 13:14] LABS: BASOPHILS ABSOLUTE AUTO 0.04 K/mm3 (0.00-0.23); BASOPHILS PERCENT AUTO 1 % (0-2); EOSINOPHILS ABSOLUTE AUTO 0.41 K/mm3 (0.00-0.68); EOSINOPHILS PERCENT AUTO 5 % (0-6); Hematocrit 22.6 % (37.0-53.0); Hemoglobin 7.2 g/dL (13.5-17.5); IMMATURE GRAN ABSOLUTE AUTO 0.12 K/mm3 (0.00-0.10); IMMATURE GRAN PERCENT AUTO 2 % (0-1); LYMPHOCYTES ABSOLUTE AUTO 0.97 K/mm3 (0.84-5.20); LYMPHOCYTES PERCENT AUTO 13 % (21-46); MONOCYTES ABSOLUTE AUTO 0.54 K/mm3 (0.16-1.47); MONOCYTES PERCENT AUTO 7 % (4-13); Mean Corpuscular HGB 26.4 pg (26.0-34.0); Mean Corpuscular HGB Conc 31.9 g/dL (31.5-36.5); Mean Corpuscular Volume 83 fL (80-100); Mean Platelet Volume 10.1 fL (9.1-12.4); NEUTROPHILS ABSOLUTE AUTO 5.55 K/mm3 (1.96-9.15); NEUTROPHILS PERCENT AUTO 73 % (41-73); Platelet Count 170 K/mm3 (150-400); RDW Coefficient Variation 18.2 % (11.7-14.2); RDW Standard Deviation 54.4 fL (35.1-46.3); Red Blood Cell Count 2.73 M/mm3 (4.30-5.90); White Blood Cell Count 7.63 K/mm3 (4.00-11.30)
--- NOTE | 2020-12-15 18:38 | NUR ---
PT SUMMARY: PT CAME ALERT AND MORE AT BASELINE BEFORE LUNCH AFTER CPAP WAS PUT ON WHILE SLEEPING PT DIDNT HAVE ANY COMPLAINS WAS ABLE TO TAKE PO MEDS WITH APPLESAUCE WITH NO PROBLEMS. CBC WAS ORDERED HGB STILL DROPPED TO 7.2 DR RICHEY MADE AWARE OF PT'S IMPROVEMENT. DR SLAUGHTER ORDERED ANOTHER H&H IN THE AM. VITALS HAS BEEN STABLE. NO OTHER ISSUES ENCOUNTERED FOR THE SHIFT, PT CALLS APPROPRIATELY. RIGHT GROIN TRIALYSIS DRESSING WAS CHANGED, NO HEMATOMA OR BLEEDING NOTED AROUND THE SITE, POSITIVE BLOOD RETURN. WILL REPORT TO ONCOMING SHIFT
--- NOTE | 2020-12-15 19:15 | NUR ---
report received-care assumer=-critical staffing PT ON RA-WATCHING TV, NS INFUSING @ 75ML/HR. CONTINUE WITH ASESSMENT-SEE FLOWSHEET FOR VITALS.
--- NOTE | 2020-12-15 21:05 | NUR ---
REPORT RECEIVED AT 1920-CARE ASSUMED, CRITICAL STAFFING- FAMILY AT BEDSIDE HELPING WITH PT. PRECEDEX GTT INFUSING FOR AGGITATION-PT IN PRONE POSITION ON BIPAP.HEPARIN GTT INFUSING. SEE FLOWSHEET FOR GTT RATES, GTT'S, & VITALS. SURGE SHIFT ASSESSMENT NOW- CONTINUE ASSESSSMENT AND CARE.
[2020-12-16 03:45] LABS: BASOPHILS ABSOLUTE AUTO 0.03 K/mm3 (0.00-0.23); BASOPHILS PERCENT AUTO 0 % (0-2); EOSINOPHILS ABSOLUTE AUTO 0.39 K/mm3 (0.00-0.68); EOSINOPHILS PERCENT AUTO 6 % (0-6); Hematocrit 21.5 % (37.0-53.0); IMMATURE GRAN ABSOLUTE AUTO 0.17 K/mm3 (0.00-0.10); IMMATURE GRAN PERCENT AUTO 3 % (0-1); LYMPHOCYTES PERCENT AUTO 20 % (21-46); MONOCYTES ABSOLUTE AUTO 0.48 K/mm3 (0.16-1.47); MONOCYTES PERCENT AUTO 7 % (4-13); Mean Corpuscular HGB 26.5 pg (26.0-34.0); Mean Corpuscular HGB Conc 32.6 g/dL (31.5-36.5); Mean Corpuscular Volume 81 fL (80-100); Mean Platelet Volume 10.3 fL (9.1-12.4); NEUTROPHILS PERCENT AUTO 64 % (41-73); Platelet Count 181 K/mm3 (150-400); Red Blood Cell Count 2.64 M/mm3 (4.30-5.90); White Blood Cell Count 6.87 K/mm3 (4.00-11.30)
[2020-12-16 04:03] LABS: Albumin, Blood 2.3 g/dL (3.4-5.0); Anion Gap 8 mmol/L (6-16); Blood Urea Nitrogen 9 mg/dL (8-24); Bun/Creatinine Ratio 9.7 (12.0-20.0); CO2, Blood 24 mmol/L (21-32); Calcium, Blood 7.4 mg/dL (8.5-10.1); Chloride, Blood 109 mmol/L (98-108); Creatinine, Blood 0.93 mg/dL (0.60-1.20); Glomerular Filtration Rate >60 (60-); Glucose, Blood 100 mg/dL (70-99); Magnesium, Blood 1.4 mg/dL (1.6-2.4); Phosphorus, Blood 3.1 mg/dL (2.5-4.9); Potassium, Blood 3.7 mmol/L (3.5-5.5); Sodium, Blood 141 mmol/L (136-145)
--- NOTE | 2020-12-16 06:32 | NUR ---
PLACED CALL OUT TO HOSPITALIST AWAITING CALL BACK-LOW H&H ON AM LABS. NOTED MD JUST ORDERED H&H FOR TOMMRROW AM- AND CT ABD/PELVIC.
--- NOTE | 2020-12-16 14:52 | NUR ---
ASSUMED CARE A THIS TIME. REPORT TAKEN FROM PREVIOUS RN.
--- NOTE | 2020-12-16 16:46 | NUR ---
PT TRANSFERRED TO MEDICAL FLOOR AT THIS TIME. BELONGINGS SENT WITH PT. REPORT CALLED TO MEDICAL FLOOR RN
--- NOTE | 2020-12-16 17:20 | NUR ---
SHIFT SUMMARY PATIENT TRANSFERRED FROM PCU 5 AT 1710. PATIENT SETTLED INTO ROOM. PATIENT DENIES PAIN, NAUSEA, AND SHORTNESS OF BREATH. PATIENT EAITNG AND DRINKING WELL. PATIENT HAS NOT TRASFERRED THIS SHIFT. PATIENT IS INCONTINENT OF BOWEL, STOOL SAMPLE NEEDED. PATIENT IS PLEASANT AND COOPERATIVE WITH CARE.
--- NOTE | 2020-12-16 17:23 | NUR ---
Per chart review, pt. not yet appropriate for discharge. [facility] will need to be notified when discharge date is set. They will likely request that their RN assess pt. for appropriate return. Potential that they would consider verbal update if pt. is at or near baseline. Home health ordered prior to admit. Pt. will need order for resumption of HH through [facility].
[2020-12-17 05:03] LABS: BASOPHILS ABSOLUTE AUTO 0.04 K/mm3 (0.00-0.23); BASOPHILS PERCENT AUTO 1 % (0-2); EOSINOPHILS ABSOLUTE AUTO 0.32 K/mm3 (0.00-0.68); EOSINOPHILS PERCENT AUTO 5 % (0-6); Hematocrit 21.6 % (37.0-53.0); Hemoglobin 6.7 g/dL (13.5-17.5); IMMATURE GRAN ABSOLUTE AUTO 0.18 K/mm3 (0.00-0.10); IMMATURE GRAN PERCENT AUTO 3 % (0-1); LYMPHOCYTES ABSOLUTE AUTO 1.28 K/mm3 (0.84-5.20); LYMPHOCYTES PERCENT AUTO 18 % (21-46); MONOCYTES ABSOLUTE AUTO 0.51 K/mm3 (0.16-1.47); MONOCYTES PERCENT AUTO 7 % (4-13); Mean Corpuscular HGB 25.9 pg (26.0-34.0); Mean Corpuscular Volume 83 fL (80-100); Mean Platelet Volume 9.8 fL (9.1-12.4); NEUTROPHILS ABSOLUTE AUTO 4.74 K/mm3 (1.96-9.15); NEUTROPHILS PERCENT AUTO 67 % (41-73); Platelet Count 216 K/mm3 (150-400); RDW Coefficient Variation 18.3 % (11.7-14.2); RDW Standard Deviation 54.1 fL (35.1-46.3); Red Blood Cell Count 2.59 M/mm3 (4.30-5.90); White Blood Cell Count 7.07 K/mm3 (4.00-11.30)
[2020-12-17 05:36] LABS: Albumin, Blood 2.4 g/dL (3.4-5.0); Anion Gap 8 mmol/L (6-16); Blood Urea Nitrogen 6 mg/dL (8-24); CO2, Blood 23 mmol/L (21-32); Chloride, Blood 112 mmol/L (98-108); Creatinine, Blood 0.86 mg/dL (0.60-1.20); Glomerular Filtration Rate >60 (60-); Glucose, Blood 104 mg/dL (70-99); Potassium, Blood 3.5 mmol/L (3.5-5.5); Sodium, Blood 143 mmol/L (136-145)
[2020-12-17 14:36] LABS: BASOPHILS ABSOLUTE AUTO 0.03 K/mm3 (0.00-0.23); BASOPHILS PERCENT AUTO 0 % (0-2); EOSINOPHILS ABSOLUTE AUTO 0.32 K/mm3 (0.00-0.68); EOSINOPHILS PERCENT AUTO 5 % (0-6); Hemoglobin 8.1 g/dL (13.5-17.5); IMMATURE GRAN ABSOLUTE AUTO 0.18 K/mm3 (0.00-0.10); IMMATURE GRAN PERCENT AUTO 3 % (0-1); LYMPHOCYTES PERCENT AUTO 16 % (21-46); MONOCYTES PERCENT AUTO 7 % (4-13); Mean Corpuscular HGB 26.8 pg (26.0-34.0); Mean Corpuscular HGB Conc 32.4 g/dL (31.5-36.5); Mean Corpuscular Volume 83 fL (80-100); Mean Platelet Volume 9.6 fL (9.1-12.4); NEUTROPHILS ABSOLUTE AUTO 4.76 K/mm3 (1.96-9.15); NEUTROPHILS PERCENT AUTO 69 % (41-73); Platelet Count 216 K/mm3 (150-400); RDW Coefficient Variation 18.3 % (11.7-14.2); RDW Standard Deviation 52.4 fL (35.1-46.3); Red Blood Cell Count 3.02 M/mm3 (4.30-5.90); White Blood Cell Count 6.89 K/mm3 (4.00-11.30)
--- NOTE | 2020-12-17 15:19 | NUR ---
per chart review with Dr. De Oliveira, plan is for the pt to have repeat labs done tomorrow and hope is to return to [facility]. Called Rachel at [facility] and they have concern about pt's need for 2-person assist. Pt's PLOF was 1-person assist, able to transfer self to toilet, in and out of bed and shower self. Pt was mobile around facility in wheelchair. Per hospital chart, pt's ADLs are sometimes a 1-person assist and other times/activities like bathing is a 2-person assist. Spoke with Dr. De Oliveira and asked for orders of PT and OT to evaluate pt prior to discharge to see if pt is able to return to [facility]. -kjb
--- NOTE | 2020-12-17 16:17 | NUR ---
SHIFT SUMMARY PATIENT COMPLAINS OF PAIN WHEN RIGHT ARM AND LEG ARE TOUCHED. PATIENT REFUSED MEDICATION. PATIENT DENIES NAUSEA AND SHORTNESS OF BREATH. HGB WAS 6.7 THIS MORNING. ONE UNIT OF PRBC WAS INFUSED THIS SHIFT, PER DR. RICHEY ORDERS. REPEAT HGB WAS 8.1. PT AND OT WORKED WITH PATIENT TODAY. PATIENT UP IN HIS CHAIR AND WAS ALBE TO WHEEL HIMSELF DOWN HALLWAY. PATIENT IS A 2 PERSON STAND PIVOT FOR SAFETY. NEW IV PLACED. PATIENT EATING AND DRINKING WELL ON HIS OWN.
[2020-12-18 04:52] LABS: BASOPHILS ABSOLUTE AUTO 0.06 K/mm3 (0.00-0.23); BASOPHILS PERCENT AUTO 1 % (0-2); EOSINOPHILS ABSOLUTE AUTO 0.36 K/mm3 (0.00-0.68); EOSINOPHILS PERCENT AUTO 4 % (0-6); Hematocrit 25.1 % (37.0-53.0); Hemoglobin 7.9 g/dL (13.5-17.5); IMMATURE GRAN PERCENT AUTO 4 % (0-1); LYMPHOCYTES ABSOLUTE AUTO 1.48 K/mm3 (0.84-5.20); LYMPHOCYTES PERCENT AUTO 17 % (21-46); MONOCYTES ABSOLUTE AUTO 0.61 K/mm3 (0.16-1.47); MONOCYTES PERCENT AUTO 7 % (4-13); Mean Corpuscular HGB 26.2 pg (26.0-34.0); Mean Corpuscular HGB Conc 31.5 g/dL (31.5-36.5); Mean Corpuscular Volume 83 fL (80-100); Mean Platelet Volume 9.7 fL (9.1-12.4); NEUTROPHILS ABSOLUTE AUTO 5.77 K/mm3 (1.96-9.15); NEUTROPHILS PERCENT AUTO 67 % (41-73); NRBC ABSOLUTE 0.03 K/mm3 (0.00-0.02); NRBC Auto 0.3 /100 WBC (0.0-0.2); Platelet Count 250 K/mm3 (150-400); RDW Coefficient Variation 18.6 % (11.7-14.2); Red Blood Cell Count 3.01 M/mm3 (4.30-5.90); White Blood Cell Count 8.58 K/mm3 (4.00-11.30)
[2020-12-18 05:14] LABS: Albumin, Blood 2.4 g/dL (3.4-5.0); Anion Gap 9 mmol/L (6-16); Blood Urea Nitrogen 8 mg/dL (8-24); Bun/Creatinine Ratio 9.8 (12.0-20.0); CO2, Blood 21 mmol/L (21-32); Calcium, Blood 8.7 mg/dL (8.5-10.1); Chloride, Blood 113 mmol/L (98-108); Creatinine, Blood 0.81 mg/dL (0.60-1.20); Glomerular Filtration Rate >60 (60-); Glucose, Blood 119 mg/dL (70-99); Phosphorus, Blood 2.2 mg/dL (2.5-4.9); Potassium, Blood 3.8 mmol/L (3.5-5.5); Sodium, Blood 143 mmol/L (136-145)
--- NOTE | 2020-12-18 11:02 | NUR ---
per chart review with Dr. De Oliveira, pt is stable to d/c back to [facility] house. PT and OT saw pt yesterday and found pt to be stable to return home. Faxed over their notes to Rachel and reviewed the notes with her. Rachel agreed to accept the pt back. Will need to call [facility] for transport home. Rachel asked that we have him return between lunch and dinner. -aleksandra ([email or web address], 11:02 AM)
--- NOTE | 2020-12-18 17:45 | NUR ---
AT APPROX 1620, THE PATTIENT WAS DISCHARGED TO [facility] VIA AMBULANCE. HE IS ALERT AND ORIENTED X 2. NO COMPLAINTS OF PAIN. VS WNML. HE DOES NOT APPEAR TO BE IN ACUTE DISTRESS. SHEETS CATH WAS REMOVED AND HE VOIDED SMALL AMOUNT OF URINE PRIOR TO LEAVING. HE WAS OOB WITH 2 PERSON ASSIST. HE DID GET OUT OF BED BY HIMSELF X 1 AND BED ALARM WAS SET TO PREVENT FALLS OTHERWISE HE HAD AN UNEVENTFUL DAY.
--- NOTE | 2020-12-18 17:52 | NUR ---
NOTIFIED BY STAFF THAT CLIENT'S DENTURES WERE LEFT IN THE ROOM. I NOTIFIED [facility] OF THE DENTURES AND WAS TOLD THAT THEY ([facility]) WOULD HAVE THE CLIENT'S MOTHER TO COME TO QA AUTOMATION DEVELOPER THE DENTURES. THE CLIENT'S MOM DID PRESENT TO THE ER TO QA AUTOMATION DEVELOPER DENTURES AND SHE ASKED ABOUT HIS EYEGLASSES. THE SECTION BEAMER STATED THAT EYEGLASSES WAS NOT LEFT IN THE ROOM.
[2020-12-22] MEDS ORDERED: Colace100 MG PO (14:40)
[2020-12-22] MEDS ORDERED: SENN187 PO (14:41)
== END 2020-12-18 16:29 | disposition home or self-care (01) | DRG 682 ==
LOC: ER 20:33 → ICUW 22:39 → MEDS 22:39 → ICUW 12-12 00:15 → PCU 12-14 11:00 → MEDS 12-16 16:51
PROVIDERS: Emergency Medicine; Family Medicine; Hospitalist; Internal Medicine Nephrology; ADMIT Internal Medicine Cardiovascular Disease
PROC: 4A023N7 Measurement of Cardiac Sampling and Pressure, Left Heart, Percutaneous Approach (ICD-10-PCS; principal; 2020-12-11)
PROC: B2111ZZ Fluoroscopy of Multiple Coronary Arteries using Low Osmolar Contrast (ICD-10-PCS; 2020-12-11)
PROC: 8E0ZXY6 Isolation (ICD-10-PCS; 2020-12-11)
PROC: B2151ZZ Fluoroscopy of Left Heart using Low Osmolar Contrast (ICD-10-PCS; 2020-12-11)
PROC: 3E033XZ Introduction of Vasopressor into Peripheral Vein, Percutaneous Approach (ICD-10-PCS; 2020-12-12)
DX: N17.9 Acute kidney failure, unspecified (principal); J96.01 Acute respiratory failure with hypoxia; U07.1 COVID-19; I69.351 Hemiplegia and hemiparesis following cerebral infarction affecting right dominant side; E87.1 Hypo-osmolality and hyponatremia; E87.2 Acidosis; R57.9 Shock, unspecified; G47.33 Obstructive sleep apnea (adult) (pediatric); N40.0 Benign prostatic hyperplasia without lower urinary tract symptoms; E66.01 Morbid (severe) obesity due to excess calories; I12.9 Hypertensive chronic kidney disease with stage 1 through stage 4 chronic kidney disease, or unspecified chronic kidney disease; E11.22 Type 2 diabetes mellitus with diabetic chronic kidney disease; N18.9 Chronic kidney disease, unspecified; E87.5 Hyperkalemia; D63.1 Anemia in chronic kidney disease; D72.829 Elevated white blood cell count, unspecified; M10.9 Gout, unspecified; Z68.33 Body mass index [BMI] 33.0-33.9, adult; E83.39 Other disorders of phosphorus metabolism; E83.42 Hypomagnesemia; E78.5 Hyperlipidemia, unspecified; Z88.0 Allergy status to penicillin; Z88.8 Allergy status to other drugs, medicaments and biological substances; Z79.4 Long term (current) use of insulin; Z79.899 Other long term (current) drug therapy; Z86.711 Personal history of pulmonary embolism; Z90.49 Acquired absence of other specified parts of digestive tract; Z79.01 Long term (current) use of anticoagulants
CPT/HCPCS: 36415; 36430; 36556; 51702; 71045; 74177; 76770; 80048; 80053; 80061; 80069; 80076; 81001; 82374; 82550; 82553; 82803; 82947; 83735; 83880; 84100; 84132; 84484; 85018; 85025; 85347; 85379; 85610; 85730; 86140; 86850; 86900; 86901; 86923; 87040; 87426; 93005; 93010; 93306; 93308; 93458; 93971; 94660; 94762; 97110; 97162; 97166; 97530; 97535; 99152; 99153; 99285-25; A9270; C1752; C1769; C1887; C1894; C9803; J1265; J1644; J1815; J2250; J2405; J2597; J3010; J3475; J7030; J7040; J7050; J7060; J7070; P9016; Q9967; U0004

== ENCOUNTER 2021-01-07 17:57 | Emergency (ER) | payer MEDICARE, OTHER ==
[~2021-01-07] VITALS: Ht 172.7 cm; Wt 83.9 kg
[~2021-01-07 17:57] MED LIST changes: +ALLOPURINOL100 M1 PO; +BASAGLAR K100 UNIT/3 SC; +Colace100 MG PO; +FURO20 PO; +GABAPENTIN600 MG PO; +KLOR-CON 1010 ME1 PO; +METFORMIN HCL500 M2 PO; +NORTRIPTYLINE H PO; +PRAVASTATIN SOD10 MG PO; +SENN187 PO; +SPIRONOLACTONE25 MG PO; +TAMSULOSIN HCL0.4 M1 PO; +XARELTO20 M1 PO
== END 2021-01-07 20:03 | disposition home or self-care (01) ==
LOC: ER 17:57
DX: S09.90XA Unspecified injury of head, initial encounter (principal); I10 Essential (primary) hypertension; E11.9 Type 2 diabetes mellitus without complications; N40.0 Benign prostatic hyperplasia without lower urinary tract symptoms; E78.5 Hyperlipidemia, unspecified; Z88.8 Allergy status to other drugs, medicaments and biological substances; Z88.1 Allergy status to other antibiotic agents; Z88.0 Allergy status to penicillin; Z79.899 Other long term (current) drug therapy; Z79.4 Long term (current) use of insulin; Z86.711 Personal history of pulmonary embolism; Z86.73 Personal history of transient ischemic attack (TIA), and cerebral infarction without residual deficits; Z79.01 Long term (current) use of anticoagulants; W05.0XXA Fall from non-moving wheelchair, initial encounter
CPT/HCPCS: 70450; 99284-25

== ENCOUNTER 2021-04-09 11:35 | Emergency (ER) | payer MEDICARE, OTHER ==
[~2021-04-09] VITALS: Ht 172.7 cm; Wt 86.2 kg
[2021-04-09] MEDS ORDERED: DOXY100 PO (12:36)
== END 2021-04-09 13:15 | disposition home or self-care (01) ==
LOC: ER 11:35
DX: L03.115 Cellulitis of right lower limb (principal); I11.0 Hypertensive heart disease with heart failure; I50.9 Heart failure, unspecified; E11.9 Type 2 diabetes mellitus without complications; G47.30 Sleep apnea, unspecified; K21.9 Gastro-esophageal reflux disease without esophagitis; M10.9 Gout, unspecified; Z88.0 Allergy status to penicillin; Z88.1 Allergy status to other antibiotic agents; Z88.8 Allergy status to other drugs, medicaments and biological substances; Z79.899 Other long term (current) drug therapy; Z79.4 Long term (current) use of insulin; Z79.84 Long term (current) use of oral hypoglycemic drugs
CPT/HCPCS: 99283; A9270

== ENCOUNTER 2022-02-12 18:35 | Inpatient (IN) | payer MEDICARE, OTHER ==
[~2022-02-12] VITALS: Ht 165.1 cm; Wt 104.3 kg
[2022-02-12 19:28] LABS: BASOPHILS PERCENT AUTO 0 % (0-2); EOSINOPHILS ABSOLUTE AUTO 0.03 K/mm3 (0.00-0.68); EOSINOPHILS PERCENT AUTO 0 % (0-6); Hematocrit 42.2 % (37.0-53.0); Hemoglobin 13.8 g/dL (13.5-17.5); IMMATURE GRAN ABSOLUTE AUTO 0.29 K/mm3 (0.00-0.10); IMMATURE GRAN PERCENT AUTO 1 % (0-1); LYMPHOCYTES ABSOLUTE AUTO 1.38 K/mm3 (0.84-5.20); LYMPHOCYTES PERCENT AUTO 6 % (21-46); MONOCYTES ABSOLUTE AUTO 1.94 K/mm3 (0.16-1.47); MONOCYTES PERCENT AUTO 8 % (4-13); Mean Corpuscular HGB 29.1 pg (26.0-34.0); Mean Corpuscular HGB Conc 32.7 g/dL (31.5-36.5); Mean Corpuscular Volume 89 fL (80-100); Mean Platelet Volume 10.3 fL (9.1-12.4); NEUTROPHILS ABSOLUTE AUTO 20.36 K/mm3 (1.96-9.15); NEUTROPHILS PERCENT AUTO 85 % (41-73); Platelet Count 203 K/mm3 (150-400); RDW Coefficient Variation 16.1 % (11.7-14.2); RDW Standard Deviation 52.8 fL (35.1-46.3); Red Blood Cell Count 4.75 M/mm3 (4.30-5.90)
[2022-02-12 20:28] LABS: Albumin, Blood 3.4 g/dL (3.4-5.0); Albumin/Globulin Ratio 0.8 (0.8-1.8); Bilirubin, Total 1.2 mg/dL (0.1-1.0); Bun/Creatinine Ratio 13.2 (12.0-20.0); Calcium, Blood 9.2 mg/dL (8.5-10.1); Creatinine, Blood 1.06 mg/dL (0.60-1.20); Globulin, Blood 4.2 g/dL (2.2-4.0); Potassium, Blood 4.4 mmol/L (3.5-5.5); Total Protein, Blood 7.6 g/dL (6.4-8.2)
[2022-02-12 20:56] LABS: Influenza A, PCR NEGATIVE (NEGATIVE); Influenza B, PCR NEGATIVE (NEGATIVE); Resp Syncytial Virus, PCR NEGATIVE (NEGATIVE); SARS-Cov-2 (COVID-19) PCR, MMC NEGATIVE (NEGATIVE)
[2022-02-12] MEDS ORDERED: OZEMPIC1 MG/0.72 SQ (21:33)
[2022-02-12] MEDS ORDERED: XARELTO20 MG PO (21:35)
[2022-02-12 23:59] LABS: Source, Urine Voided
[2022-02-13 00:01] LABS: Bilirubin, Urine Neg (Neg); Blood, Urine 2+ (Neg); Glucose Qualitative, Urine Neg (Neg); Ketones, Urine Neg (Neg); Leukocyte Esterase, Urine 3+ (Neg); Nitrite, Urine Neg (Neg); Protein, Urine 2+ (Neg); Urobilinogen, Urine NORM (Normal)
[2022-02-13 00:06] LABS: Appearance, Urine Hazy (Clear); Color, Urine Yellow (P-Yellow)
[2022-02-13 00:08] LABS: Amorphous Light (0-Heavy); Bacteria Few /hpf; Red Blood Cells, Urine 0-2 /hpf (0-2); Squamous Epithelial Cells Rare /hpf (Few); White Blood Cells, Urine 50-100 /hpf (0-5)
[2022-02-13 05:07] LABS: BASOPHILS ABSOLUTE AUTO 0.08 K/mm3 (0.00-0.23); BASOPHILS PERCENT AUTO 0 % (0-2); EOSINOPHILS ABSOLUTE AUTO 0.08 K/mm3 (0.00-0.68); EOSINOPHILS PERCENT AUTO 0 % (0-6); Hematocrit 39.8 % (37.0-53.0); Hemoglobin 12.6 g/dL (13.5-17.5); IMMATURE GRAN ABSOLUTE AUTO 0.24 K/mm3 (0.00-0.10); IMMATURE GRAN PERCENT AUTO 1 % (0-1); LYMPHOCYTES ABSOLUTE AUTO 1.68 K/mm3 (0.84-5.20); LYMPHOCYTES PERCENT AUTO 8 % (21-46); MONOCYTES ABSOLUTE AUTO 1.47 K/mm3 (0.16-1.47); MONOCYTES PERCENT AUTO 7 % (4-13); Mean Corpuscular HGB 28.6 pg (26.0-34.0); Mean Corpuscular HGB Conc 31.7 g/dL (31.5-36.5); Mean Corpuscular Volume 90 fL (80-100); Mean Platelet Volume 10.1 fL (9.1-12.4); NEUTROPHILS ABSOLUTE AUTO 16.42 K/mm3 (1.96-9.15); NEUTROPHILS PERCENT AUTO 82 % (41-73); Platelet Count 183 K/mm3 (150-400); RDW Coefficient Variation 16.1 % (11.7-14.2); RDW Standard Deviation 53.5 fL (35.1-46.3); Red Blood Cell Count 4.41 M/mm3 (4.30-5.90); White Blood Cell Count 19.97 K/mm3 (4.00-11.30)
[2022-02-13 05:20] LABS: Calcium, Blood 8.4 mg/dL (8.5-10.1); Creatinine, Blood 0.82 mg/dL (0.60-1.20); Potassium, Blood 3.8 mmol/L (3.5-5.5)
--- NOTE | 2022-02-13 05:50 | NUR ---
MANAGER UTILITY SUMMARY NEW ADMIT FROM THE ED HERE FOR UROSEPSIS. PT AAOX4 AND PLEASANT. HAS R SIDE DEFECITS FROM PREVIOUS CVA AND DOES RAYMOND FOR WORDS AT TIMES BUT COMMUNICATED FAIRLY WELL. RECIEVED FLUID BOLUS IN ED AND IS NOW ON MAINTENANCE NS AT 100 ML/HR. REPEAT LACTIC ACID THIS AM SAME PREVIOUS AT 2.2. WILL NOTIFY HOSPITALIST. VSS, WILL CONTINUE TO MONITOR.
[2022-02-13] MEDS ORDERED: CORTISONE60 GM TOP (06:04)
[2022-02-13] MEDS ORDERED: LOPE2C PO (06:04)
[2022-02-13] MEDS ORDERED: Acetaminophen650 M1 PO (06:05)
[2022-02-13] MEDS ORDERED: MYLANTA PO (06:06)
[2022-02-13] MEDS ORDERED: BISA5EC PO (06:07)
[2022-02-13] MEDS ORDERED: IBUP600 PO (06:07)
[2022-02-13] MEDS ORDERED: B-121000 MC3 PO (06:10)
[2022-02-13] MEDS ORDERED: FLOURIDE PO (06:12)
[2022-02-13] MEDS ORDERED: FERSU300 PO (06:13)
--- NOTE | 2022-02-13 19:42 | NUR ---
SHIFT SUMMARY PT A&O X3-4 AND COOPERATIVE OF CARE. PT INCONTINENT OF BOWEL AND BLADDER. GI PANEL UNCOLECTED D/T NO BM'S TODAY. PT HAD CRITICAL LACTIC ACID VALUE. DR SEARS NOTIFIED AND 1 BAG OF NS GIVEN WO. PT HAD NO C/O PAIN. PT ABLE TO VERBALIZE NEEDS BUT HAS SOME APHASIA D/T HX OF CVA. BED IN LOWEST POSITION AND CALL LIGHT IN REACH. REPORT GIVEN TO BI SPECIALIST NURSE.
[2022-02-14 05:17] LABS: BASOPHILS ABSOLUTE AUTO 0.04 K/mm3 (0.00-0.23); BASOPHILS PERCENT AUTO 1 % (0-2); EOSINOPHILS ABSOLUTE AUTO 0.09 K/mm3 (0.00-0.68); EOSINOPHILS PERCENT AUTO 1 % (0-6); Hematocrit 35.1 % (37.0-53.0); Hemoglobin 11.2 g/dL (13.5-17.5); IMMATURE GRAN ABSOLUTE AUTO 0.18 K/mm3 (0.00-0.10); IMMATURE GRAN PERCENT AUTO 2 % (0-1); LYMPHOCYTES ABSOLUTE AUTO 0.54 K/mm3 (0.84-5.20); LYMPHOCYTES PERCENT AUTO 7 % (21-46); MONOCYTES ABSOLUTE AUTO 0.47 K/mm3 (0.16-1.47); MONOCYTES PERCENT AUTO 6 % (4-13); Mean Corpuscular HGB 28.1 pg (26.0-34.0); Mean Corpuscular HGB Conc 31.9 g/dL (31.5-36.5); Mean Corpuscular Volume 88 fL (80-100); NEUTROPHILS ABSOLUTE AUTO 6.78 K/mm3 (1.96-9.15); NEUTROPHILS PERCENT AUTO 84 % (41-73); Platelet Count 161 K/mm3 (150-400); RDW Coefficient Variation 15.6 % (11.7-14.2); RDW Standard Deviation 50.2 fL (35.1-46.3); Red Blood Cell Count 3.99 M/mm3 (4.30-5.90)
[2022-02-14 07:24] LABS: Albumin, Blood 2.4 g/dL (3.4-5.0); Anion Gap 6 mmol/L (6-16); Blood Urea Nitrogen 8 mg/dL (8-24); Bun/Creatinine Ratio 9.9 (12.0-20.0); CO2, Blood 26 mmol/L (21-32); Calcium, Blood 8.2 mg/dL (8.5-10.1); Chloride, Blood 107 mmol/L (98-108); Creatinine, Blood 0.81 mg/dL (0.60-1.20); Glomerular Filtration Rate 98 (60-); Glucose, Blood 195 mg/dL (70-99); Magnesium, Blood 1.8 mg/dL (1.6-2.4); Phosphorus, Blood 1.7 mg/dL (2.5-4.9); Potassium, Blood 3.5 mmol/L (3.5-5.5); Sodium, Blood 139 mmol/L (136-145)
--- NOTE | 2022-02-14 07:56 | NUR ---
SHIFT SUMMARY: PATIENT HAS HAD NO STOOL THIS SHIFT. BLOOD GLUCOSE WAS 242 AT HS, VSS. APHASIA IS OBSERVED BUT IF GIVEN TIME PATIENT IS ABLE TO MAKE HIS NEEDS KNOWN. BED ALARM IS ON FOR SAFETY.
--- NOTE | 2022-02-14 19:39 | NUR ---
SHIFT SUMMARY PT A&O X2-3. NO ACUTE CHANGES. PT CONFUSED AT TIMES AND BELEIVES HE IS HOME. PT IS ABLE TO BE REORIENTED EASILY. NO C/O PAIN. VSS. PT INCONTIENT OF URINE AND AT TIMES IS ABLE TO VERBILZE WHEN HE IS WET. PT CALLS OUT TO [facility] FOR NEEDS. DOES NOT USE CALL LIGHT. BED IN LOWEST POSITION. REPORT GIVEN TO FORESTER AIDE NURSE.
--- NOTE | 2022-02-15 07:31 | NUR ---
MAYONNAISE MIXER SUMMARY REMAINS IN ISOLATION UNTIL C-DIFF CAN BE RULED OUT. ALERT TO QUESTIONS ASKED. SOME APHASIA AND RIGHT SIDE WEAKNESS DUE TO PREVIOUS CVA. ANTIBIOTICS AND IVF INFUSING. MEDS TOLERATED - SEE MAR FOR DETAILS. HAS BEEN RESTING QUIETLY AT INTERVALS, WITH OCCASIONAL WATCHING TV, AND JOKING WITH STAFF. INCONT OF URINE, CHANGED. CALL LIGHT IN ERACH. WILL CONTINUE TO MONITOR
[2022-02-15 08:22] LABS: BASOPHILS ABSOLUTE AUTO 0.07 K/mm3 (0.00-0.23); BASOPHILS PERCENT AUTO 1 % (0-2); EOSINOPHILS ABSOLUTE AUTO 0.19 K/mm3 (0.00-0.68); EOSINOPHILS PERCENT AUTO 2 % (0-6); Hematocrit 35.9 % (37.0-53.0); Hemoglobin 11.5 g/dL (13.5-17.5); IMMATURE GRAN ABSOLUTE AUTO 0.34 K/mm3 (0.00-0.10); IMMATURE GRAN PERCENT AUTO 4 % (0-1); LYMPHOCYTES ABSOLUTE AUTO 0.92 K/mm3 (0.84-5.20); LYMPHOCYTES PERCENT AUTO 12 % (21-46); MONOCYTES ABSOLUTE AUTO 0.85 K/mm3 (0.16-1.47); MONOCYTES PERCENT AUTO 11 % (4-13); Mean Corpuscular Volume 88 fL (80-100); Mean Platelet Volume 9.7 fL (9.1-12.4); NEUTROPHILS ABSOLUTE AUTO 5.58 K/mm3 (1.96-9.15); NEUTROPHILS PERCENT AUTO 70 % (41-73); Platelet Count 182 K/mm3 (150-400); RDW Coefficient Variation 15.4 % (11.7-14.2); RDW Standard Deviation 49.4 fL (35.1-46.3); White Blood Cell Count 7.95 K/mm3 (4.00-11.30)
[2022-02-15 08:59] LABS: Bun/Creatinine Ratio 10.3 (12.0-20.0); Calcium, Blood 8.4 mg/dL (8.5-10.1); Creatinine, Blood 0.78 mg/dL (0.60-1.20); Magnesium, Blood 2.2 mg/dL (1.6-2.4); Phosphorus, Blood 2.1 mg/dL (2.5-4.9); Potassium, Blood 3.9 mmol/L (3.5-5.5)
[2022-02-15] MEDS ORDERED: FLUORIDE1 MG PO ×2 (11:10)
[2022-02-15] MEDS ORDERED: SULTRIDS PO (11:20)
--- NOTE | 2022-02-15 15:50 | NUR ---
SHIFT SUMMARY PT AWAKE AT START OF SHIFT, WATCHING TV. HX OF CVA WITH EXPRESSIVE APHASIA. R ARM FLACCID WITH GROSS MOTOR SKILLS TO R UPPER THIGH ONLY; PT REPORTED KNEE ON DOWN FLACCID. PT IN CONTACT ISO TO R/O C-DIFF, BUT HAS NOT HAD A BM SINCE ADMISSION. PT TO RETURN TO [facility] TODAY WHEN SENIOR TECHNICAL ANALYST ABLE TO SET UP ARRANGEMENTS. NO C/O PAIN. DENIED FURTHER NEEDS. PLEASANT AND CO-OP WITH CARE.
== END 2022-02-15 18:42 | disposition home or self-care (01) | DRG 872 ==
LOC: ER 18:35 → MEDS 02-13 03:24
PROVIDERS: Emergency Medicine; Family Medicine; Internal Medicine; ADMIT Internal Medicine
DX: A41.9 Sepsis, unspecified organism (principal); I69.351 Hemiplegia and hemiparesis following cerebral infarction affecting right dominant side; N12 Tubulo-interstitial nephritis, not specified as acute or chronic; E87.20 Acidosis, unspecified; I10 Essential (primary) hypertension; E78.5 Hyperlipidemia, unspecified; E11.42 Type 2 diabetes mellitus with diabetic polyneuropathy; B96.20 Unspecified Escherichia coli [E. coli] as the cause of diseases classified elsewhere; G47.33 Obstructive sleep apnea (adult) (pediatric); Z20.822 Contact with and (suspected) exposure to COVID-19; N40.0 Benign prostatic hyperplasia without lower urinary tract symptoms; E66.01 Morbid (severe) obesity due to excess calories; N30.90 Cystitis, unspecified without hematuria; I69.320 Aphasia following cerebral infarction; Z68.38 Body mass index [BMI] 38.0-38.9, adult; Z88.0 Allergy status to penicillin; Z79.4 Long term (current) use of insulin; Z88.8 Allergy status to other drugs, medicaments and biological substances; Z79.811 Long term (current) use of aromatase inhibitors; Z79.899 Other long term (current) drug therapy; Z79.84 Long term (current) use of oral hypoglycemic drugs; Z79.2 Long term (current) use of antibiotics; Z86.711 Personal history of pulmonary embolism; Z99.81 Dependence on supplemental oxygen; Z79.01 Long term (current) use of anticoagulants; Z90.49 Acquired absence of other specified parts of digestive tract; Z98.890 Other specified postprocedural states; Z98.2 Presence of cerebrospinal fluid drainage device
CPT/HCPCS: 0241U; 36415; 51701; 74177; 80048; 80053; 80069; 81001; 82947; 83605; 83690; 83735; 84100; 85025; 87040; 87077; 87086; 87186; 96361; 96365-59; 99285-25; A9270; J0744; J1815; J2543; J3475; J7030; J7060; Q9967

== ENCOUNTER 2022-03-06 16:22 | Emergency (ER) | payer MEDICARE, OTHER ==
[~2022-03-06] VITALS: Ht 170.2 cm; Wt 90.7 kg
[~2022-03-06 16:22] MED LIST changes: +Acetaminophen650 M1 PO; +B-121000 MC3 PO; +CORTISONE60 GM TOP; +FERSU300 PO; +FLOURIDE PO; +FLUORIDE1 MG PO; +IBUP600 PO; +MYLANTA PO; +OZEMPIC1 MG/0.72 SQ
[2022-03-06 16:55] LABS: BASOPHILS ABSOLUTE AUTO 0.08 K/mm3 (0.00-0.23); BASOPHILS PERCENT AUTO 1 % (0-2); EOSINOPHILS ABSOLUTE AUTO 0.21 K/mm3 (0.00-0.68); EOSINOPHILS PERCENT AUTO 2 % (0-6); Hematocrit 41.7 % (37.0-53.0); Hemoglobin 13.4 g/dL (13.5-17.5); IMMATURE GRAN ABSOLUTE AUTO 0.05 K/mm3 (0.00-0.10); IMMATURE GRAN PERCENT AUTO 1 % (0-1); LYMPHOCYTES ABSOLUTE AUTO 2.01 K/mm3 (0.84-5.20); LYMPHOCYTES PERCENT AUTO 22 % (21-46); MONOCYTES ABSOLUTE AUTO 0.68 K/mm3 (0.16-1.47); MONOCYTES PERCENT AUTO 8 % (4-13); Mean Corpuscular HGB 28.5 pg (26.0-34.0); Mean Corpuscular HGB Conc 32.1 g/dL (31.5-36.5); Mean Corpuscular Volume 89 fL (80-100); NEUTROPHILS ABSOLUTE AUTO 6.01 K/mm3 (1.96-9.15); NEUTROPHILS PERCENT AUTO 67 % (41-73); Platelet Count 225 K/mm3 (150-400); RDW Coefficient Variation 15.8 % (11.7-14.2); RDW Standard Deviation 51.9 fL (35.1-46.3); Red Blood Cell Count 4.71 M/mm3 (4.30-5.90); White Blood Cell Count 9.04 K/mm3 (4.00-11.30)
[2022-03-06 17:09] LABS: Albumin, Blood 3.7 g/dL (3.4-5.0); Albumin/Globulin Ratio 0.8 (0.8-1.8); Bilirubin, Total 0.4 mg/dL (0.1-1.0); Bun/Creatinine Ratio 21.8 (12.0-20.0); Calcium, Blood 9.8 mg/dL (8.5-10.1); Creatinine, Blood 0.78 mg/dL (0.60-1.20); Globulin, Blood 4.6 g/dL (2.2-4.0); Potassium, Blood 4.3 mmol/L (3.5-5.5); Total Protein, Blood 8.3 g/dL (6.4-8.2)
[2022-03-06 20:22] LABS: Source, Urine Clean Catch
[2022-03-06 20:39] LABS: Appearance, Urine Clear (Clear); Bilirubin, Urine Neg (Neg); Blood, Urine Neg (Neg); Color, Urine Yellow (P-Yellow); Glucose Qualitative, Urine Neg (Neg); Ketones, Urine Neg (Neg); Leukocyte Esterase, Urine Neg (Neg); Nitrite, Urine Neg (Neg); Protein, Urine Neg (Neg); Specific Gravity, Urine 1.025 (1.003-1.022); Urobilinogen, Urine NORM (Normal)
== END 2022-03-07 00:11 | disposition home or self-care (01) ==
LOC: ER 16:22
PROVIDERS: Student in an Organized Health Care Education/Training Program
DX: N30.90 Cystitis, unspecified without hematuria (principal); E86.0 Dehydration; I69.320 Aphasia following cerebral infarction; E11.9 Type 2 diabetes mellitus without complications; I11.0 Hypertensive heart disease with heart failure; I50.9 Heart failure, unspecified; Z88.0 Allergy status to penicillin; Z88.1 Allergy status to other antibiotic agents; Z88.8 Allergy status to other drugs, medicaments and biological substances; Z79.899 Other long term (current) drug therapy; Z79.4 Long term (current) use of insulin
CPT/HCPCS: 36415; 51701; 80053; 81003; 85025